=== PATIENT | male | born 1965 | race Caucasian/White ===

== ENCOUNTER 2018-10-02 14:28 | Outpatient (CLI) | payer OTHER, SELFPAY ==
[2018-10-02 15:20] LABS: Hemoglobin A1C 8.5 % (4.5-6.2)
[2018-10-02 15:42] LABS: Cholesterol 174 mg/dL (50-200); HDL Cholesterol 40 mg/dL (40-60); LDL CHOLESTEROL 85 mg/dL (<100); Triglyceride 515 mg/dL (30-150)
== END 2018-10-02 14:48 ==
PROVIDERS: PCP Internal Medicine
DX: I10 Essential (primary) hypertension (principal); I25.10 Atherosclerotic heart disease of native coronary artery without angina pectoris; I25.2 Old myocardial infarction; Z95.1 Presence of aortocoronary bypass graft; E78.00 Pure hypercholesterolemia, unspecified; E11.9 Type 2 diabetes mellitus without complications
CPT/HCPCS: 80061; 83721; 83036

== ENCOUNTER 2018-11-19 16:17 | Outpatient (CLI) | payer OTHER, SELFPAY ==
[2018-11-19 18:07] LABS: COMMENT (LAB VIEW ONLY) 87.83 mg/dL
== END 2018-11-19 16:37 ==
PROVIDERS: PCP Internal Medicine; Visit Provider Internal Medicine
DX: E11.29 Type 2 diabetes mellitus with other diabetic kidney complication (principal); I10 Essential (primary) hypertension; R80.9 Proteinuria, unspecified
CPT/HCPCS: 82043; 82570

== ENCOUNTER 2018-12-12 15:38 | Outpatient (CLI) | payer OTHER, SELFPAY ==
[2018-12-12 16:55] LABS: Anion Gap 8.7 mmol/L (3-11); BUN 18 mg/dL (7-18); CO2 28.3 mmol/L (21.0-32.0); CREATININE 1.21 mg/dL (0.70-1.30); Calcium 9.3 mg/dL (8.5-10.1); Chloride 104 mmol/L (98-107); Glucose 201 mg/dL (70-100); Potassium 3.7 mmol/L (3.5-5.1); Sodium 141 mmol/L (136-145)
== END 2018-12-12 15:58 ==
PROVIDERS: PCP Internal Medicine; Visit Provider Internal Medicine
DX: I10 Essential (primary) hypertension (principal)
CPT/HCPCS: 36415; 80048

== ENCOUNTER 2019-10-09 07:44 | Outpatient (CLI) | payer OTHER, SELFPAY ==
[2019-10-09 11:23] LABS: Anion Gap 7.1 mmol/L (3-11); BUN 24 mg/dL (7-18); CO2 30.9 mmol/L (21.0-32.0); CREATININE 1.34 mg/dL (0.70-1.30); Calcium 9.1 mg/dL (8.5-10.1); Calculated LDL 66 mg/dL (<100); Chloride 104 mmol/L (98-107); Cholesterol 135 mg/dL (<200); Estimated GFR 55.34 (mL/min/1.73m2); Glucose 112 mg/dL (74-106); HDL Cholesterol 40 mg/dL (40-60); Potassium 3.7 mmol/L (3.5-5.1); Sodium 142 mmol/L (136-145); Triglyceride 145 mg/dL (<150)
[2019-10-09 12:18] LABS: COMMENT (LAB VIEW ONLY) 68.62 mg/dL
== END 2019-10-09 08:04 ==
PROVIDERS: PCP Internal Medicine; Visit Provider Internal Medicine
DX: I10 Essential (primary) hypertension (principal); E11.9 Type 2 diabetes mellitus without complications; E78.00 Pure hypercholesterolemia, unspecified
CPT/HCPCS: 36415; 80048; 80061; 82043; 82570

== ENCOUNTER 2020-01-26 00:07 | Outpatient (CLI) | payer OTHER, SELFPAY ==
--- NOTE | 2020-01-26 06:45 | DI.NM_ITS ---
APPROVED REPORT Exam: Pharmacologic Patient Location: Out-Patient Room/Bed: Stress Nurse: Kendra Mitchell RN BMI: 35.86 Baseline Rhythm: Sinus Rhythm, LBBB Indications: CAD, CAD s/p CABG, CAD s/p NH, CAD s/p PCI, SOB Medical History Medical History: Angina, CAD s/p CABG, CAD s/p NH, CAD s/p stent, Diabetes, HTN, Hyperlipidemia, Obes ity , Smoking Cardiac Medications: Aspirin, Amlodipine, Doxazosin/ Cardura, Metoprolol, Rosuvastatin/ Crestor Allergies: lisinopril Cardiac Risk Factors: HTN, Hyperlipidemia, DM, FHX of CAD, SOB, CVD Previous Cardiac Procedures: CABG, PCI, Myocardial infarction Pretest Chest Pain Characteristics: No chest pain Exercise History: Sedentary Lung Sounds: Clear to auscultation Heart Sounds: Regular Stress Test Details Test: Pharmacologic stress testing performed using 0.4 mg of regadenoson per 5 mL given IV over 10 s econds. Reason for pharmacologic stress test: LBBB. Nuclear Acquisition: Rest Tc-99m/Stress Tc-99m 1 day Rest Isotope: Tc-99m Sestamibi. Dose: 12.1 Date: 01/26/2020 Injection Time: 0850 Stress Isotope: Tc-99m Sestamibi. Dose: 38 Date: 01/26/2020 Injection Time: 1020 HR Resting HR Supine: 79 bpm Max Heart Rate (APMHR): 165 bpm Target HR (85% APMHR): 140 bpm Max HR Achieved: 95 bpm % of APMHR: 57 Recovery HR: 89 bpm HR response to stress: Blunted HR response to stress BP Resting BP Supine: 178/95 mmHg Max BP: 188/90 mmHg Recovery BP: 172/90 mmHg BP response to stress: Abnormal hypertensive response to stress. ECG Resting ECG: Sinus Rhythm, LBBB Ectopy: pvc's Stress ECG: Sinus Rhythm, LBBB ST Change: Normal Maximum ST Deviation: -9.1 mm Recovery ECG: Sinus Rhythm, LBBB Recovery Arrhythmia: None Clinical Exercise duration: 06:03 min sec Exercise capacity: 1 METs Stress ECG Conclusion 1. This was a pharmacologic myocardial perfusion imaging study 2. Resting EKG shows left bundle branch block. 3. Electrocardiographically the test is nondiagnostic due to resting EKG abnormalities (LBBB) and an adequate heart rate achieved (57% of predicted for age) 4. Sporadic PVCs were noted MPI Conclusion There is no myocardial ischemia or evidence of prior infarction Calculated EF is 45% Radiologist Interpretation Radiologist agrees with Mold Capper's Interpretation. Radiologist Interpretation by: Ela Peterson MD Interpretation Date/Time: 01/28/2020 08:40:52
[2020-01-26] MEDS: Regadenoson 0.4 MG/5 ML SYR IVP (10:32)
== END 2020-01-26 00:27 ==
PROVIDERS: PCP Internal Medicine; Visit Provider Internal Medicine
DX: I25.10 Atherosclerotic heart disease of native coronary artery without angina pectoris (principal); I25.2 Old myocardial infarction; R06.09 Other forms of dyspnea; R06.02 Shortness of breath; I10 Essential (primary) hypertension; Z95.1 Presence of aortocoronary bypass graft
CPT/HCPCS: 78452; 93017; J2785

== ENCOUNTER 2021-01-27 02:48 | Outpatient (CLI) | payer OTHER, SELFPAY ==
[2021-01-27 12:10] LABS: COMMENT (LAB VIEW ONLY) 34.68 mg/dL
[2021-01-27 12:14] LABS: Anion Gap 9.9 mmol/L (3-11); BUN 18 mg/dL (7-18); CO2 28.1 mmol/L (21.0-32.0); CREATININE 1.4 mg/dL (0.70-1.30); Calculated LDL 74 mg/dL (<100); Chloride 103 mmol/L (98-107); Cholesterol 196 mg/dL (<200); Estimated GFR 52.42 (mL/min/1.73m2); Glucose 216 mg/dL (74-106); HDL Cholesterol 50 mg/dL (40-60); Potassium 3.9 mmol/L (3.5-5.1); Sodium 141 mmol/L (136-145); Triglyceride 364 mg/dL (<150)
== END 2021-01-27 02:49 | disposition home or self-care (01) ==
LOC: LBO 02:48
PROVIDERS: PCP Internal Medicine; Visit Provider Internal Medicine
DX: I10 Essential (primary) hypertension (principal); E78.00 Pure hypercholesterolemia, unspecified; E11.9 Type 2 diabetes mellitus without complications; R80.9 Proteinuria, unspecified
CPT/HCPCS: 36415; 80048; 80061; 82043; 82570

== ENCOUNTER 2021-02-02 15:15 | Outpatient (REF) | payer OTHER, SELFPAY ==
[2021-02-02 20:35] LABS: PROTEIN 414.4 mg/dL (0.0-11.9)
== END 2021-02-02 15:16 | disposition home or self-care (01) ==
LOC: LBN 15:15
PROVIDERS: PCP Internal Medicine; Visit Provider Internal Medicine
DX: R60.0 Localized edema (principal)
CPT/HCPCS: 84156

== ENCOUNTER 2021-02-24 02:18 | Outpatient (CLI) | payer OTHER, SELFPAY ==
--- NOTE | 2021-02-24 06:35 | DI.RAD_ITS ---
Exam(s) XR CHEST 2V PA LATERAL EXAM: XR CHEST 2V PA LATERAL CLINICAL HISTORY: wheezing,R06.2,EDEMA,R60.9.CAD I25.810. TECHNIQUE: 2D digital imaging was performed. COMPARISON: CR CHEST 2 VIEWS PA,LAT from 01/18/2016 FINDINGS: There is cardiomegaly and sternotomy wires again noted. Mediastinum unchanged. Lungs are clear. No infiltrates nor pleural effusions. No pulmonary edema. No pneumothorax. IMPRESSION: No acute pulmonary findings. Cardiomegaly and evidence of previous sternotomy again noted. DATA REPOSITORY: RADIATION DOSE DELIVERED:
--- NOTE | 2021-02-24 09:40 | DI.US_ITS ---
APPROVED REPORT EXAM: Comprehensive 2D, Doppler, and color-flow Echocardiogram Patient Location: Out-Patient Frame Hand: Lori Womack RDCS (AE) Indications: Edema, CAD, CABG Other Information Study Quality: Fair. Technically limited study due to body habitus. Conclusion Left Ventricle : The left ventricle is normal size. Left ventricular systolic function is mildly decr eased. Mild concentric left ventricular hypertrophy. The left ventricular diastolic function is petros l. There is global hypokinesis of the left ventricle. LVEF is 44%. Right Ventricle : Right ventricle is grossly normal in size. Right ventricular systolic function is g rossly normal. The RVSP is 40.0mmHg. Atria : The left atrium size is normal. The right atrium size is normal. Mitral Valve : Moderate mitral annular calcification. Trace mitral regurgitation. No evidence of mitr al valve stenosis. Great Vessels : The aortic root is normal in size. The ascending aorta is normal in size. Aortic arch is not well visualized. IVC is normal in size and collapses >50% with inspiration. Please see remainder of study for further details. Wall motion Left Ventricle The left ventricle is normal size. Left ventricular systolic function is mildly decreased. Mild fito ntric left ventricular hypertrophy. There is global hypokinesis of the left ventricle. The left ventr icular diastolic function is normal. There is no ventricular septal defect visualized. LVEF is 44%. Right Ventricle Right ventricle is grossly normal in size. Right ventricular systolic function is grossly normal. The RVSP is 40.0mmHg. Atria The left atrium size is normal. The right atrium size is normal. The interatrial septum is intact wit h no evidence for an atrial septal defect. Aortic Valve The Aortic valve is sclerotic. Aortic valve is trileaflet. There is no aortic valvular stenosis. No a ortic regurgitation is present. Mitral Valve Moderate mitral annular calcification. No evidence of mitral valve stenosis. Trace mitral regurgitati on. Tricuspid Valve The tricuspid valve is normal in structure. There is no tricuspid valve stenosis. Mild tricuspid regu rgitation. Pulmonic Valve Pulmonic valve is not well visualized. There is no pulmonic valvular stenosis. Mild pulmonic regurgit ation. Great Vessels The aortic root is normal in size. The ascending aorta is normal in size. Aortic arch is not well vis ualized. IVC is normal in size and collapses >50% with inspiration. Pericardium There is no pericardial effusion. 2D Dimensions IVSD d PLAX 1.28 cm M: 0.6-1.2 LV Vol A2C d MOD 95.8 mL LVPW d PLAX 1.25 cm M: 0.6 - 1.2 LV Vol A4C d MOD 148.7 mL LVID d PLAX 4.51 cm M: 4.2 - 5.8 LV EF A4C MOD 43.1 % LVDs 3.45 cm M: 2.5 - 4.0 LV EF A2C MOD 45.7 % Ao Root d 3.54 cm M: 3.1 - 3.7 LV EF Biplane MOD 43.4 % RA Area A4C 16.29 cm2 SV 51.89 mL RA Vol/ BSA A4C s A-L 18.5 mL/m2 SV Index 22.23 mL/m2 Ao Asc Diam d 3.38 cm M: 2.6 - 3.4 LV EF Teichholz 46.7 % LVEF (Sauceda's) 43.38 % M: 52 - 72 LV Volume 85.43 mL M: 62 - 150 LV Volume Index 36.66 mL/m2 M: 34 - 74 LV Vol Biplane MOD 119.6 mL FS 23.20 % M-Mode TAPSE 2.45 cm (M/F) >1.7 LV Diastology MV E' medial 0.084 (>0.07 m/s) E/A Ratio 0.8 LV E/e MED 10.20 (<14) MV E Vmax 0.86 (0.4-1.3 m/s) MV E' lateral 0.134 (>0.1 m/s) MV A Vmax 1.10 (0.4-1.3 m/s) LV E/e LAT 6.40 (<14) MV E/A Ratio 0.78 MV E/E' medial 10.20 MV E/E' lateral 6.41 Aortic Valve LVOT Area 3.62 cm2 AoV Area Vmax 3.16 cm2 LVOT Vmax 1.22 m/s AoV Area/ BSA (Vmax) 1.36 cm2/m2 LVOT Mean [place]. 0.78 m/s LINDSEY Mean [place]. 2.91 cm2 LVOT Peak Grad 6.0 mmHg LINDSEY Mean [place]. Index 1.25 cm2/m2 LVOT Mean Grad 2.9 mmHg LVOT VTI 0.204 m LVOT Diam s 2.10 cm AoV Vmax 1.40 m/s Velocity Ratio 0.87 AoV Mean [place]. 0.97 m/s AoV Peak Grad 7.8 mmHg LVOT SV 74.05 mL AoV Mean Grad 4.2 mmHg AoV VTI 0.241 m AoV Area VTI 3.07 cm2 AoV Area/ BSA (VTI) 1.32 cm/m2 Mitral Valve MV DT 147 (160-240 msec) MV PHT 43 msec MV Area PHT 5.16 cm2 MV VTI 0.324 m MV Area VTI 2.28 (4.0-6.0 cm2) Pulmonary Valve PV Vmax 1.65 (0.5-1.5 m/s) RVOT Peak Gr. 3.15 mmHg PV Peak Grad 10.8 mmHg RVOT Mean Gr. 1.65 mmHg PV Mean Grad 5.6 mmHg RVOT VTI 0.186 m PV VTI 0.348 m RVOT Vmax 0.89 m/s Tricuspid Valve TR Peak Grad 37.0 mmHg TR Vmax 3.04 m/s RA Pressure 3.00 mmHg RVSP (TR) 40.0 mmHg
== END 2021-02-24 02:38 ==
PROVIDERS: PCP Internal Medicine; Visit Provider Internal Medicine
DX: I25.810 Atherosclerosis of coronary artery bypass graft(s) without angina pectoris (principal); R60.9 Edema, unspecified; R06.2 Wheezing; I07.1 Rheumatic tricuspid insufficiency
CPT/HCPCS: 71046; 93306

== ENCOUNTER 2021-06-28 02:50 | Outpatient (CLI) | payer OTHER, SELFPAY ==
[2021-06-28 07:53] LABS: Bilirubin Negative (Negative); Blood Trace-intact (Negative); Clarity Clear (Clear); Glucose Negative (Negative); Ketones Negative (Negative); Leukocyte Esterase Negative (Negative); Nitrite Negative (Negative); Urobilinogen 0.2 EU/dL (Up TO 0.2); pH 6.5 (5-8)
[2021-06-28 08:09] LABS: Bacteria Few HPF (Negative); C & S Indicated? Yes; Casts Negative LPF (Negative); Crystals Negative HPF (Negative); Epithelial Cells Rare HPF (Negative); Mucus Negative (Negative); Other Cells Negative (Negative); WBC 0-2 HPF (0-5)
[2021-06-28 08:53] LABS: ALT 64 U/L (16-63); AST 33 U/L (15-37); Albumin 3.2 g/dL (3.4-5.0); Alkaline Phosphatase 75 U/L (46-116); Anion Gap 7.1 mmol/L (3-11); BUN 16 mg/dL (7-18); Bilirubin, Total 0.7 mg/dL (0.2-1.0); CO2 30.9 mmol/L (21.0-32.0); CREATININE 1.5 mg/dL (0.70-1.30); Calcium 8.9 mg/dL (8.5-10.1); Calculated LDL 64 mg/dL (<100); Chloride 105 mmol/L (98-107); Cholesterol 154 mg/dL (<200); Estimated GFR 48.41 (mL/min/1.73m2); Glucose 146 mg/dL (74-106); HDL Cholesterol 48 mg/dL (40-60); Potassium 3.8 mmol/L (3.5-5.1); Sodium 143 mmol/L (136-145); Total Protein 6.4 g/dL (6.4-8.2); Triglyceride 213 mg/dL (<150)
[2021-06-28 13:17] LABS: COMMENT (LAB VIEW ONLY) < 13.00 mg/dL; PROTEIN 117.1 mg/dL
== END 2021-06-28 02:51 | disposition home or self-care (01) ==
LOC: LBO 02:50
PROVIDERS: PCP Internal Medicine; Visit Provider Internal Medicine
DX: E11.29 Type 2 diabetes mellitus with other diabetic kidney complication (principal); R80.9 Proteinuria, unspecified; E78.00 Pure hypercholesterolemia, unspecified
CPT/HCPCS: 36415; 80053; 80061; 81003; 81015; 82565; 84156; 87086

== ENCOUNTER 2021-09-28 13:12 | Outpatient (REF) | payer OTHER, SELFPAY ==
[2021-09-28 15:06] LABS: COMMENT (LAB VIEW ONLY) 89.46 mg/dL
[2021-09-28 16:11] LABS: PROTEIN 642.1 mg/dL; Prot/Crea Ur Ratio 7.17
== END 2021-09-28 13:13 | disposition home or self-care (01) ==
LOC: LBN 13:12
PROVIDERS: PCP Internal Medicine; Referring Provider Internal Medicine; Visit Provider Internal Medicine
DX: R80.9 Proteinuria, unspecified (principal)
CPT/HCPCS: 82565; 84156

== ENCOUNTER 2021-10-20 04:05 | Outpatient (CLI) | payer OTHER, SELFPAY ==
[2021-10-20 10:35] LABS: Anion Gap 8.7 mmol/L (3-11); BUN 19 mg/dL (7-18); CO2 28.3 mmol/L (21.0-32.0); CREATININE 1.6 mg/dL (0.70-1.30); Calcium 9.2 mg/dL (8.5-10.1); Chloride 107 mmol/L (98-107); Estimated GFR 44.78 (mL/min/1.73m2); Glucose 155 mg/dL (74-106); Potassium 3.8 mmol/L (3.5-5.1); Sodium 144 mmol/L (136-145)
[2021-10-21 09:40] LABS: C3 Complement 141 mg/dL (81-157); C4 Complement 34 mg/dL (13-39); Kappa Free Light Chain 3.43 mg/dL (0.33-1.94); Lambda Free Light Chain 3.67 mg/dL (0.57-2.63)
[2021-10-21 10:21] LABS: Hepatitis B Surface Ag Negative (Negative)
[2021-10-21 10:26] LABS: HBs Antibody, Quant <3.1 mIU/mL (See Note); Hepatitis B Surface Ab Negative (See Note)
[2021-10-21 10:47] LABS: Hepatitis C Ab w Rflx HCV PCR Negative (Negative)
[2021-10-21 13:58] LABS: Albumin 58.1 % (55.8-66.1); Total Protein 6.3 g/dL (6.3-8.2)
== END 2021-10-20 04:06 | disposition home or self-care (01) ==
LOC: LBO 04:06
PROVIDERS: PCP Internal Medicine; Visit Provider Internal Medicine
DX: E11.21 Type 2 diabetes mellitus with diabetic nephropathy (principal); N18.30 Chronic kidney disease, stage 3 unspecified; R80.9 Proteinuria, unspecified
CPT/HCPCS: 36415; 80048; 86706; 86803; 87340; 83883; 84165; 86160

== ENCOUNTER 2021-10-20 16:43 | Outpatient (REF) | payer OTHER, SELFPAY ==
[2021-10-21 14:52] LABS: Albumin, Urine % 77.2 %; Globulins, Urine % 22.8 %; Immunotyping, Urine (See Note); Total Protein Urine 555 mg/dL (See Note)
== END 2021-10-20 16:44 | disposition home or self-care (01) ==
LOC: LBN 16:43
PROVIDERS: PCP Internal Medicine; Visit Provider Internal Medicine
DX: E11.21 Type 2 diabetes mellitus with diabetic nephropathy (principal); N18.30 Chronic kidney disease, stage 3 unspecified; R80.9 Proteinuria, unspecified
CPT/HCPCS: 84156; 84166; 86335

== ENCOUNTER 2021-11-17 03:04 | Outpatient (CLI) | payer OTHER, SELFPAY ==
[2021-11-17 15:55] LABS: Anion Gap 5.3 mmol/L (3-11); BUN 19 mg/dL (7-18); CO2 30.7 mmol/L (21.0-32.0); CREATININE 1.5 mg/dL (0.70-1.30); Calcium 8.8 mg/dL (8.5-10.1); Chloride 105 mmol/L (98-107); Estimated GFR 48.24 (mL/min/1.73m2); Glucose 120 mg/dL (74-106); Sodium 141 mmol/L (136-145)
[2021-11-17 15:59] LABS: COMMENT (LAB VIEW ONLY) 53.77 mg/dL; PROTEIN 420.6 mg/dL; Prot/Crea Ur Ratio 7.82
[2021-11-17 16:04] LABS: COMMENT (LAB VIEW ONLY) 53.56 mg/dL
== END 2021-11-17 03:05 | disposition home or self-care (01) ==
LOC: LBO 03:04
PROVIDERS: PCP Internal Medicine; Visit Provider Internal Medicine Nephrology
DX: R79.89 Other specified abnormal findings of blood chemistry (principal)
CPT/HCPCS: 36415; 80048; 82043; 82565; 82570; 84156

== ENCOUNTER 2022-01-16 03:24 | Outpatient (CLI) | payer OTHER, SELFPAY ==
[2022-01-16 09:59] LABS: Abs Immature Grans 0.02 10^3/uL (0.0-0.06); Absolute Basophil Count 0.04 10^3/uL (0.0-0.2); Absolute Eosinophil Count 0.57 10^3/uL (0.0-0.7); Absolute Lymphocyte Count 1.49 10^3/uL (1.2-3.4); Absolute Neutrophil Count 3.69 10^3/uL (1.2-6.7); Basophils % 0.6; Eosinophils % 8.4; HCT 53.7 % (40.0-50.0); HGB 18.1 g/dL (13.5-17.5); Immature Grans % 0.3; Lymphocytes % 21.9; MCH 31.3 pg (27.0-33.0); MCHC 33.7 % (32.0-36.0); MCV 93 fL (80-95); MPV 9.3 fL (8.0-11.0); Monocytes % 14.7; Neutrophils % 54.1; Platelet Count 186 10^3/uL (130-400); RBC 5.79 10^6/uL (4.36-5.78); RDW 13.1 % (11.8-14.1); RDW-SD 44.7 fL; WBC 6.81 10^3/uL (4.4-10.8)
[2022-01-16 10:21] LABS: COMMENT (LAB VIEW ONLY) 43.83 mg/dL; PROTEIN 417.8 mg/dL; Prot/Crea Ur Ratio 9.53
[2022-01-16 10:41] LABS: Albumin 2.9 g/dL (3.4-5.0); BUN 17 mg/dL (7-18); CREATININE 1.6 mg/dL (0.70-1.30); Calcium 8.5 mg/dL (8.5-10.1); Chloride 103 mmol/L (98-107); Estimated GFR 44.78 (mL/min/1.73m2); Glucose 125 mg/dL (74-106); Potassium 3.6 mmol/L (3.5-5.1); Sodium 141 mmol/L (136-145)
[2022-01-16 11:15] LABS: Vitamin D 25 Total < 5 ng/mL (30-100)
[2022-01-16 12:11] LABS: COMMENT (LAB VIEW ONLY) 43.14 mg/dL
[2022-01-18 17:15] LABS: Phospholipase A2 Receptor IFA Negative (Negative); Phospholipase A2Receptor ELISA <2 RU/mL
== END 2022-01-16 03:25 | disposition home or self-care (01) ==
LOC: LBO 03:24
PROVIDERS: PCP Internal Medicine; Visit Provider Internal Medicine Nephrology
DX: E11.21 Type 2 diabetes mellitus with diabetic nephropathy (principal); R80.9 Proteinuria, unspecified; R79.89 Other specified abnormal findings of blood chemistry
CPT/HCPCS: 36415; 80048; 82306; 83520; 86255; 82040; 82043; 82565; 82570; 84156; 85025

== ENCOUNTER 2022-08-31 01:43 | Outpatient (CLI) | payer OTHER, SELFPAY ==
[2022-08-31 09:48] LABS: HCT 50.7 % (40.0-50.0); Lymphocytes % 17.1; MCH 31.6 pg (27.0-33.0); MCHC 33.5 % (32.0-36.0); MCV 94 fL (80-95); MPV 8.9 fL (8.0-11.0); Monocytes % 9.6; Neutrophils % 67.9; Platelet Count 229 10^3/uL (130-400); RBC 5.38 10^6/uL (4.36-5.78); RDW 12.8 % (11.8-14.1); RDW-SD 43.9 fL; WBC 8.81 10^3/uL (4.4-10.8)
[2022-08-31 09:49] LABS: Abs Immature Grans 0.02 10^3/uL (0.0-0.06); Absolute Basophil Count 0.06 10^3/uL (0.0-0.2); Absolute Lymphocyte Count 1.51 10^3/uL (1.2-3.4); Absolute Monocyte Count 0.85 10^3/uL (0.1-0.8); Absolute Neutrophil Count 5.97 10^3/uL (1.2-6.7); Basophils % 0.7; Eosinophils % 4.5; Immature Grans % 0.2
[2022-08-31 10:34] LABS: ALT 24 U/L (16-63); AST 24 U/L (15-37); Albumin 3.1 g/dL (3.4-5.0); Alkaline Phosphatase 76 U/L (46-116); Anion Gap 7.7 mmol/L (3-11); BUN 22 mg/dL (7-18); Bilirubin, Total 0.7 mg/dL (0.2-1.0); CO2 29.3 mmol/L (21.0-32.0); CREATININE 1.7 mg/dL (0.70-1.30); Calcium 8.9 mg/dL (8.5-10.1); Calculated LDL 58 mg/dL (<100); Chloride 106 mmol/L (98-107); Cholesterol 144 mg/dL (<200); Estimated GFR 46.15 (mL/min/1.73m2); Glucose 129 mg/dL (74-106); HDL Cholesterol 48 mg/dL (40-60); Potassium 3.8 mmol/L (3.5-5.1); Sodium 143 mmol/L (136-145); Total Protein 6.4 g/dL (6.4-8.2); Triglyceride 191 mg/dL (<150)
== END 2022-08-31 01:44 | disposition home or self-care (01) ==
LOC: LBO 01:43
PROVIDERS: PCP Nurse Practitioner; Visit Provider Nurse Practitioner
DX: E11.21 Type 2 diabetes mellitus with diabetic nephropathy (principal); E78.5 Hyperlipidemia, unspecified; J45.909 Unspecified asthma, uncomplicated; N18.30 Chronic kidney disease, stage 3 unspecified
CPT/HCPCS: 36415; 80053; 80061; 85025

== ENCOUNTER 2023-02-15 04:12 | Outpatient (CLI) | payer OTHER, SELFPAY ==
[2023-02-15 12:00] LABS: NT-proBNP 802 pg/mL (<300)
[2023-02-18 11:46] LABS: Lipoprotein (a) 11 nmol/L (<75)
[2023-02-19 12:39] LABS: c-ANCA Negative (Negative); p-ANCA Negative (Negative)
[2023-02-22 12:56] LABS: Renin Activity, Plasma <0.6 ng/mL/h
[2023-02-23 23:45] LABS: Aldosterone, P 21 ng/dL (<=21)
== END 2023-02-15 04:13 | disposition home or self-care (01) ==
LOC: LBO 04:12
PROVIDERS: PCP Nurse Practitioner; Visit Provider Internal Medicine Nephrology
DX: E78.9 Disorder of lipoprotein metabolism, unspecified (principal); E11.21 Type 2 diabetes mellitus with diabetic nephropathy; E55.9 Vitamin D deficiency, unspecified; R06.09 Other forms of dyspnea
CPT/HCPCS: 36415; 82088; 83695; 83880; 84244; 86255

== ENCOUNTER 2023-12-27 05:12 | Outpatient (CLI) | payer OTHER, SELFPAY ==
[2023-12-27 07:56] LABS: Abs Immature Grans 0.03 10^3/uL (0.0-0.06); Absolute Basophil Count 0.05 10^3/uL (0.0-0.2); Absolute Eosinophil Count 0.41 10^3/uL (0.0-0.7); Absolute Lymphocyte Count 1.73 10^3/uL (1.2-3.4); Absolute Monocyte Count 0.82 10^3/uL (0.1-0.8); Absolute Neutrophil Count 5.08 10^3/uL (1.2-6.7); Basophils % 0.6 %; HCT 40.7 % (40.0-50.0); HGB 13.8 g/dL (13.5-17.5); Immature Grans % 0.4 %; Lymphocytes % 21.3 %; MCH 32.4 pg (27.0-33.0); MCHC 33.9 % (32.0-36.0); MCV 96 fL (80-95); MPV 8.8 fL (8.0-11.0); Monocytes % 10.1 %; Neutrophils % 62.6 %; Platelet Count 209 10^3/uL (130-400); RBC 4.26 10^6/uL (4.36-5.78); RDW 12.5 % (11.8-14.1); RDW-SD 44.2 fL; WBC 8.12 10^3/uL (4.4-10.8)
[2023-12-27 08:53] LABS: ALT 32 U/L (16-63); AST 20 U/L (15-37); Albumin 3.7 g/dL (3.4-5.0); Alkaline Phosphatase 54 U/L (46-116); BUN 51 mg/dL (7-18); Bilirubin, Total 0.6 mg/dL (0.2-1.0); CREATININE 3.2 mg/dL (0.70-1.30); Calcium 9.7 mg/dL (8.5-10.1); Calculated LDL 27 mg/dL (<100); Chloride 106 mmol/L (98-107); Cholesterol 115 mg/dL (<200); Estimated GFR 21.47 (mL/min/1.73m2); Glucose 118 mg/dL (74-106); HDL Cholesterol 39 mg/dL (40-60); Potassium 4.3 mmol/L (3.5-5.1); Sodium 144 mmol/L (136-145); Total Protein 7.1 g/dL (6.4-8.2); Triglyceride 247 mg/dL (<150)
== END 2023-12-27 05:13 | disposition home or self-care (01) ==
LOC: LBO 05:12
PROVIDERS: PCP Nurse Practitioner; Referring Provider Nurse Practitioner; Visit Provider Nurse Practitioner
DX: N18.30 Chronic kidney disease, stage 3 unspecified (principal); E11.21 Type 2 diabetes mellitus with diabetic nephropathy; E78.5 Hyperlipidemia, unspecified; I10 Essential (primary) hypertension
CPT/HCPCS: 36415; 80053; 80061; 85025

== ENCOUNTER → 2024-01-25 01:56 | Outpatient (CLI) | payer OTHER, SELFPAY ==
--- NOTE | 2024-01-25 08:08 | DI.CT_ITS ---
Exam(s) CT ABDOMEN PELVIS WO EXAM: CT ABDOMEN PELVIS WO CLINICAL HISTORY: Rectus diastases versus abdominal wall hernia, ABD WALL BULGE, R19.00. TECHNIQUE: Imaging Protocol: Axial computed tomography images with coronal and sagittal reformatted images were created and reviewed. COMPARISON: US US RENAL from 10/20/2021 FINDINGS: ABDOMEN: Lung Bases: Coronary artery calcifications and/or stents are present. Liver: Normal density. No measurable mass. Gallbladder and biliary tract: Cholelithiasis. No biliary ductal dilatation. Pancreas: Normal density, no abnormal calcifications or inflammatory process. Spleen: Normal. Kidneys: Normal size, contour and axis.No radiodense stones or obstructive uropathy. No masses seen. Adrenal glands: No mass is seen. Lymph nodes: Within normal limits. Abdominal Aorta: Abdominal portion non-dilated. Atherosclerotic calcification is present. PELVIS: Bladder:Symmetric distention, no gross wall thickening. Bowel: There are few diverticula in the colon but no evidence of acute diverticulitis. There is a du odenal diverticulum present. There is no evidence of bowel obstruction or bowel wall thickening. No evidence of appendicitis. Peritoneal cavity: No ascites, collection or mesenteric inflammatory response. No free air. Reproductive organs: Unremarkable as visualized. Bones: Within normal limits. There are old healed rib fractures. Soft Tissues: There is a small fat containing supraumbilical midline anterior abdominal wall hernia. There is a small fat containing umbilical hernia. There are fat containing small bilateral inguinal hernias. IMPRESSION: 1. Small supraumbilical fat containing midline anterior abdominal wall hernia. 2. Small fat containing umbilical hernia. 3. Small bilateral fat containing inguinal hernias. RADIATION DOSE DELIVERED: 1,390.29mGy.cm Total DLP DATA REPOSITORY: All CT scans at this facility are submitted to the National Radiology Data Registry (NRDR) Dose Index Registry (DIR) with the [employer] ([employer]). RADIATION OPTIMIZATION: All CT scans at this facility use at least one of these dose optimization te chniques: automated exposure control; mA and/or kV adjustment per patient size (includes targeted exa ms where dose is matched to clinical indication); or iterative reconstruction.
[2024-01-25] MEDS: Barium Sulfate 2% W/V-Creamy Vanilla Smoothie 450 ML BTL PO ×2 (13:20→13:21)
[2024-01-25 13:40] LABS: CREATININE 2.9 mg/dL (0.70-1.30); Estimated GFR 24.16 (mL/min/1.73m2)
== END ==
PROVIDERS: PCP Nurse Practitioner; Visit Provider Surgery
DX: R19.00 Intra-abdominal and pelvic swelling, mass and lump, unspecified site (principal)
CPT/HCPCS: 74176; 82565

== ENCOUNTER 2024-02-28 12:18 | Outpatient (CLI) | payer OTHER, SELFPAY ==
[2024-02-28 12:51] LABS: ESR 7 mm/hr (0-20)
[2024-02-28 13:45] LABS: COMMENT (LAB VIEW ONLY) 41.99 mg/dL; PROTEIN 56.2 mg/dL; Prot/Crea Ur Ratio 1.33
[2024-02-28 13:47] LABS: ALT 32 U/L (16-63); AST 19 U/L (15-37); Alkaline Phosphatase 61 U/L (46-116); BUN 60 mg/dL (7-18); Bilirubin, Total 0.45 mg/dL (0.2-1.0); C-Reactive Protein < 0.50 mg/dL (<or=0.5); CREATININE 3.2 mg/dL (0.70-1.30); Calcium 9.8 mg/dL (8.5-10.1); Chloride 104 mmol/L (98-107); Estimated GFR 21.47 (mL/min/1.73m2); Glucose 246 mg/dL (74-106); Potassium 4.7 mmol/L (3.5-5.1); Sodium 140 mmol/L (136-145); Total Protein 7.8 g/dL (6.4-8.2)
[2024-02-28 14:00] LABS: COMMENT (LAB VIEW ONLY) 42.58 mg/dL
[2024-02-28 14:01] LABS: Microalb ug/mg Crea 1084.8 ug/mg Cr
[2024-02-29 09:12] LABS: C3 Complement 142 mg/dL (81-157); C4 Complement 33 mg/dL (13-39); Kappa Free Light Chain 6.59 mg/dL (0.33-1.94); Lambda Free Light Chain 4.84 mg/dL (0.57-2.63)
[2024-02-29 12:43] LABS: Albumin 60.6 % (55.8-66.1); Albumin g/dL 4.3 g/dL (3.6-5.2); Total Protein 7.1 g/dL (6.3-8.2)
[2024-02-29 14:55] LABS: ANA Interpretation Negative (Negative)
[2024-02-29 16:13] LABS: Albumin, Urine % 81.5 %; Albumin, Urine mg/dL 50 mg/dL; Globulins, Urine % 18.5 %; Globulins, Urine mg/dL 11 mg/dL; Immunotyping, Urine (See Note); Total Protein Urine 61 mg/dL (See Note)
[2024-03-01 10:35] LABS: Glomerular Basement Membr Ab <0.2 U; Myeloperoxidase Ab IgG <0.2 U; Proteinase 3 Ab (PR3) <0.2 U
[2024-03-01 13:59] LABS: c-ANCA Negative (Negative); p-ANCA Negative (Negative)
== END 2024-02-28 12:19 | disposition home or self-care (01) ==
LOC: LBO 12:19
PROVIDERS: PCP Nurse Practitioner; Visit Provider Internal Medicine Nephrology
DX: N17.9 Acute kidney failure, unspecified (principal)
CPT/HCPCS: 36415; 80053; 84156; 84166; 85652; 86335; 82043; 82565; 82570; 82595; 83516; 83520; 83883; 84165; 86038; 86140; 86160; 86255

== ENCOUNTER 2024-04-24 16:11 | Outpatient (CLI) | payer OTHER, SELFPAY ==
[2024-04-24 10:41] LABS: Abs Immature Grans 0.05 10^3/uL (0.0-0.06); Absolute Basophil Count 0.06 10^3/uL (0.0-0.2); Absolute Eosinophil Count 0.39 10^3/uL (0.0-0.7); Absolute Lymphocyte Count 1.39 10^3/uL (1.2-3.4); Absolute Monocyte Count 0.64 10^3/uL (0.1-0.8); Basophils % 0.7 %; Eosinophils % 4.9 %; HCT 40.9 % (40.0-50.0); HGB 13.9 g/dL (13.5-17.5); Immature Grans % 0.6 %; Lymphocytes % 17.3 %; MCH 32.7 pg (27.0-33.0); MCV 96 fL (80-95); Neutrophils % 68.5 %; Platelet Count 248 10^3/uL (130-400); RBC 4.25 10^6/uL (4.36-5.78); RDW 12.6 % (11.8-14.1); RDW-SD 44.1 fL; WBC 8.03 10^3/uL (4.4-10.8)
[2024-04-24 10:59] LABS: COMMENT (LAB VIEW ONLY) 103.56 mg/dL; PROTEIN 153.4 mg/dL; Prot/Crea Ur Ratio 1.48
[2024-04-24 11:07] LABS: COMMENT (LAB VIEW ONLY) 104.17 mg/dL
[2024-04-24 11:23] LABS: Albumin 3.7 g/dL (3.4-5.0); Anion Gap 9.3 mmol/L (3-11); BUN 42 mg/dL (7-18); CO2 25.7 mmol/L (21.0-32.0); CREATININE 2.7 mg/dL (0.70-1.30); Calcium 9.6 mg/dL (8.5-10.1); Chloride 107 mmol/L (98-107); Estimated GFR 26.33 (mL/min/1.73m2); Glucose 142 mg/dL (74-106); Potassium 4.9 mmol/L (3.5-5.1); Sodium 142 mmol/L (136-145); Vitamin D 25 Total 34.3 ng/mL (30-100)
[2024-04-24 19:28] LABS: Parathyroid Hormone,Intact 112 pg/mL (19-88)
== END 2024-04-24 16:12 | disposition home or self-care (01) ==
LOC: LBO 16:11
PROVIDERS: PCP Nurse Practitioner; Visit Provider Internal Medicine Nephrology
DX: E55.9 Vitamin D deficiency, unspecified (principal); N18.32 Chronic kidney disease, stage 3b; N17.9 Acute kidney failure, unspecified
CPT/HCPCS: 36415; 80048; 82306; 82040; 82043; 82565; 82570; 83970; 84156; 85025

== ENCOUNTER 2024-08-28 00:49 | Outpatient (CLI) | payer OTHER, SELFPAY ==
--- NOTE | 2024-08-28 07:00 | DI.RAD_ITS ---
Exam(s) XR LUMBAR SPINE COMPLETE EXAM: XR LUMBAR SPINE COMPLETE CLINICAL HISTORY: LOW BACK pain since summer,M54.50. TECHNIQUE: 2D digital imaging was performed. Five views. COMPARISON: No exams were available for comparison FINDINGS: BONES: No fracture or destructive lesion. Vertebral body heights are maintained. Moderate facet hy pertrophy identified at L4-5 and L5-S1.. No spondylolysis. DISKS: Endplate osteophytes throughout. Mild multilevel disc space narrowing. ALIGNMENT: Mild degenerative scoliosis. No spondylolisthesis. SOFT TISSUE: The aorta is calcified but normal in diameter. Gallstones are noted. IMPRESSION: Mild scoliosis degenerative disc changes and facet degenerative changes. DATA REPOSITORY: RADIATION DOSE DELIVERED:
== END 2024-08-28 01:09 ==
LOC: DI 00:49
PROVIDERS: PCP Nurse Practitioner; Visit Provider Nurse Practitioner
DX: M41.82 Other forms of scoliosis, cervical region (principal)
CPT/HCPCS: 72110

== ENCOUNTER 2024-12-04 01:36 | Outpatient (CLI) | payer OTHER, SELFPAY ==
[2024-12-04 09:30] LABS: Abs Immature Grans 0.02 10^3/uL (0.0-0.06); Absolute Basophil Count 0.05 10^3/uL (0.0-0.2); Absolute Lymphocyte Count 1.45 10^3/uL (1.2-3.4); Absolute Monocyte Count 0.73 10^3/uL (0.1-0.8); Absolute Neutrophil Count 4.43 10^3/uL (1.2-6.7); Basophils % 0.7 %; Eosinophils % 4.3 %; HCT 42.1 % (40.0-50.0); Immature Grans % 0.3 %; Lymphocytes % 20.8 %; MCH 32.9 pg (27.0-33.0); MCHC 33.3 % (32.0-36.0); MCV 99 fL (80-95); MPV 8.6 fL (8.0-11.0); Monocytes % 10.5 %; Neutrophils % 63.4 %; Platelet Count 221 10^3/uL (130-400); RBC 4.26 10^6/uL (4.36-5.78); RDW 12.9 % (11.8-14.1); RDW-SD 46.9 fL; WBC 6.98 10^3/uL (4.4-10.8)
[2024-12-04 10:08] LABS: COMMENT (LAB VIEW ONLY) 39.58 mg/dL; PROTEIN 20.3 mg/dL; Prot/Crea Ur Ratio 0.51
[2024-12-04 10:10] LABS: Anion Gap 7.8 mmol/L (3-11); CO2 24.2 mmol/L (21.0-32.0); Calcium 10.6 mg/dL (8.5-10.1); Chloride 108 mmol/L (98-107); Estimated GFR 17.93 (mL/min/1.73m2); Glucose 110 mg/dL (74-106); PHOSPHORUS 5.4 mg/dL (2.6-4.7); Potassium 5.2 mmol/L (3.5-5.1); Sodium 140 mmol/L (136-145); Uric Acid 10.2 mg/dL (3.5-7.2)
[2024-12-04 10:20] LABS: BUN 86 mg/dL (7-18); CREATININE 3.7 mg/dL (0.70-1.30)
[2024-12-04 19:19] LABS: Parathyroid Hormone,Intact 64 pg/mL (19-88)
== END 2024-12-04 01:37 | disposition home or self-care (01) ==
PROVIDERS: PCP Nurse Practitioner; Visit Provider Internal Medicine Nephrology
DX: N18.4 Chronic kidney disease, stage 4 (severe) (principal)
CPT/HCPCS: 36415; 80048; 82040; 82565; 83970; 84100; 84156; 84550; 85025

== ENCOUNTER 2025-01-29 11:35 | Outpatient (CLI) | payer OTHER, SELFPAY ==
[2025-01-29 12:54] LABS: COMMENT (LAB VIEW ONLY) 61.32 mg/dL
[2025-01-29 12:59] LABS: Microalb ug/mg Crea 274.0 ug/mg Cr
[2025-01-29 13:05] LABS: Anion Gap 10.6 mmol/L (3-11); BUN 59 mg/dL (7-18); CO2 24.4 mmol/L (21.0-32.0); Calcium 9.0 mg/dL (8.5-10.1); Chloride 106 mmol/L (98-107); Estimated GFR 18.52 (mL/min/1.73m2); Ferritin 382 ng/mL (26-388); Glucose 117 mg/dL (74-106); Magnesium 2.4 mg/dL (1.8-2.4); Potassium 5.1 mmol/L (3.5-5.1); Sodium 141 mmol/L (136-145); Vitamin D 25 Total 44 ng/mL (30-100)
[2025-01-29 13:29] LABS: Iron 82 ug/dL (65-175); Total Iron Binding Capacity 284 ug/dL (250-450); Transferrin Sat 29 % (20-55)
== END 2025-01-29 11:36 | disposition home or self-care (01) ==
LOC: LBO 11:36
PROVIDERS: PCP Nurse Practitioner; Visit Provider Internal Medicine Nephrology
DX: N18.4 Chronic kidney disease, stage 4 (severe) (principal); E87.5 Hyperkalemia
CPT/HCPCS: 36415; 80048; 82306; 82043; 82570; 82728; 83540; 83550; 83735

== ENCOUNTER 2025-02-19 09:55 | Outpatient (CLI) | payer OTHER, SELFPAY ==
[2025-02-19 10:04] LABS: Abs Immature Grans 0.02 10^3/uL (0.0-0.06); HCT 42.2 % (40.0-50.0); HGB 14.2 g/dL (13.5-17.5); Immature Grans % 0.3 %; MCH 33.5 pg (27.0-33.0); MCHC 33.6 % (32.0-36.0); MCV 100 fL (80-95); MPV 8.6 fL (8.0-11.0); Platelet Count 198 10^3/uL (130-400); RBC 4.24 10^6/uL (4.36-5.78); RDW 12.7 % (11.8-14.1); RDW-SD 45.8 fL; WBC 6.45 10^3/uL (4.4-10.8)
[2025-02-19 10:22] LABS: PROTEIN 60.9 mg/dL; Prot/Crea Ur Ratio 0.71
[2025-02-19 10:25] LABS: Albumin 3.8 g/dL (3.4-5.0); Anion Gap 9.7 mmol/L (3-11); BUN 39 mg/dL (7-18); CO2 24.3 mmol/L (21.0-32.0); Calcium 9.4 mg/dL (8.5-10.1); Chloride 106 mmol/L (98-107); Estimated GFR 24.01 (mL/min/1.73m2); Glucose 107 mg/dL (74-106); Potassium 4.7 mmol/L (3.5-5.1); Sodium 140 mmol/L (136-145); Uric Acid 8.5 mg/dL (3.5-7.2)
== END 2025-02-19 09:56 | disposition home or self-care (01) ==
LOC: LBO 09:55
PROVIDERS: PCP Nurse Practitioner; Visit Provider Internal Medicine Nephrology
DX: N18.4 Chronic kidney disease, stage 4 (severe) (principal)
CPT/HCPCS: 36415; 80048; 82040; 82565; 83970; 84100; 84156; 84550; 85025

== ENCOUNTER 2025-03-19 14:01 | Outpatient (CLI) | payer OTHER, SELFPAY ==
[2025-03-19 09:26] LABS: INR 1.0 (0.9-1.1); PTT Activated 23.6 sec (20.6-30.2); Prothrombin Time 10.2 sec (9.1-11.1)
[2025-03-20 08:37] LABS: HBs Antibody, Quant 5.1 mIU/mL (See Note); Hepatitis B Surface Ab Negative (See Note)
[2025-03-20 09:23] LABS: Hepatitis C Ab w Rflx HCV PCR Negative (Negative)
[2025-03-20 09:27] LABS: Hep B Core Antibody Negative (Negative)
[2025-03-20 09:41] LABS: HIV-1/2 Ag & Ab Screen Negative (Negative)
[2025-03-20 12:17] LABS: Rubella IgG Ab (UVM) Positive (See Note)
[2025-03-20 13:37] LABS: HSV Type 2 Ab, IgG Negative (Negative)
[2025-03-20 15:23] LABS: VCA IgG Positive (Negative); VCA IgM Negative (Negative)
[2025-03-23 15:49] LABS: Syphilis IgG w/Reflex Nonreactive (Nonreactive)
== END 2025-03-19 14:02 | disposition home or self-care (01) ==
LOC: LBO 14:02
PROVIDERS: PCP Nurse Practitioner; Visit Provider Surgery
DX: N18.4 Chronic kidney disease, stage 4 (severe) (principal); Z01.818 Encounter for other preprocedural examination
CPT/HCPCS: 36415; 84153; 86704; 86706; 86765; 86787; 86803; 87340; 87389; 82985; 84681; 85610; 85730; 86644; 86664; 86665; 86695; 86696; 86735; 86762; 86777; 86780; 87497

== ENCOUNTER 2025-05-07 09:09 | Outpatient (CLI) | payer OTHER, SELFPAY ==
[2025-05-07 10:06] LABS: Estimated GFR 21.34 (mL/min/1.73m2)
[2025-05-07 18:34] LABS: PSA, Screening 1.3 ng/mL (<=4.5)
== END 2025-05-07 09:10 | disposition home or self-care (01) ==
LOC: LBO 09:09
PROVIDERS: PCP Nurse Practitioner; Visit Provider Family Medicine
DX: Z12.5 Encounter for screening for malignant neoplasm of prostate (principal); R94.4 Abnormal results of kidney function studies
CPT/HCPCS: 36415; 84153; 82565

== ENCOUNTER 2025-06-12 13:17 | Inpatient (IN) | payer OTHER, SELFPAY ==
[2025-06-12] VITALS (41 sets, daily range): BP systolic 91–126; BP diastolic 54–77; PULSE 55–72; RESP 13–23; TEMP 35.8–37.4; O2SAT 95–98
--- NOTE | 2025-06-12 13:15 | RT.EKG_ITS ---
APPROVED REPORT Exam: Resting ECG Reason for Exam: hypotension Patient Location: E HR:61 bpm ECG Measurements Heart Rate 61 AXIS MN 240 P -69 QRSd 162 QRS -84 QT 453 T [id number] QTc 456 Conclusion Sinus or ectopic atrial rhythm...P axis (-45,135) Prolonged MN interval...MN >210, V-rate 50- 90 Left bundle branch block...QRSd>120, broad/notched R ST elevation secondary to IVCD...Multiple VCG criteria
--- NOTE | 2025-06-12 13:56 | W.ED.GENAD ---
Discharge Plan Disposition Patient Disposition: Admit to [facility] Condition: Serious Discharge Details Clinical Impression: Hyperkalemia, NOLAN (acute kidney injury), Acute hypotension, Hypovolemia Primary Care Provider: Preston Moffett ED Provider: Seamus Smith Home Meds and New Rx's Prescriptions: No Action amlodipine 10 mg tablet 10 mg PO DAILY Qty: 90 3RF olmesartan [Benicar] 40 mg tablet 40 mg PO DAILY Qty: 90 3RF rosuvastatin 20 mg tablet 20 mg PO DAILY Qty: 90 3RF famotidine 40 mg tablet 40 mg PO DAILY Qty: 90 0RF peg 3350-electrolytes [Golytely] 236-22.74-6.74 -5.86 gram recon soln 240 ml PO Q10M Qty: 4000 0RF Rx Instructions: until fecal effluent is clear, for colonoscopy prep bisacodyl 5 mg tablet,delayed release (DR/EC) 5 mg PO ONCE Qty: 4 0RF Rx Instructions: Per Colonoscopy bowel prep instructions aspirin 81 MG tablet,delayed release (DR/EC) 81 mg PO DAILY (DME) FreeStyle Arnold 2 [place] Misc See Rx Instructions .ROUTE .MEDSUPPLY Qty: 1 0RF Rx Instructions: As directed cholecalciferol (vitamin D3) 50 mcg (2,000 unit) capsule 50 mcg PO DAILY Rx Instructions: note dated 02/02/22 [facility] [place] carvedilol [Coreg] 25 mg tablet 25 mg PO BID Patient Comments: 10/06/22 [facility] Rx Instructions: must administer with a meal/food (DME) FreeStyle Arnold 2 Sensor Kit See Rx Instructions .ROUTE .MEDSUPPLY Qty: 6 3RF Rx Instructions: As directed furosemide 20 mg tablet 40 mg PO DAILY PRN (Reason: edema) Qty: 180 3RF Rx Instructions: 1-2 tabs daily as needed for edema or weight gain semaglutide 1 mg/dose (4 mg/3 mL) pen injector 1 mg subcut QWEEK Qty: 3 5RF (DME) blood-glucose meter Misc See Rx Instructions .Route Qty: 1 0RF Rx Instructions: Please fill with insurance preferred Brand. Check blood sugar BID. DX: E11.9 T2DM. (DME) Blood Glucose Test Strip See Rx Instructions .Route Qty: 100 3RF Rx Instructions: Please fill with insurance preferred brand. Check blood sugar BID. DX: E11.9 T2DM (DME) lancets 32 gauge misc See Rx Instructions .Route Qty: 100 3RF Rx Instructions: Please fill with preferred insurance brand. Check blood sugar BID. DX:E11.9 T2DM. Please provide lancing device. Mounjaro 5 mg/0.5 mL pen injector 5 mg subcut QWEEK Patient Comments: from 02/26/25 visit doxazosin 1 mg tablet 2 mg PO DAILY Patient Comments: increased to 2mg per pt.HE Jardiance 10 mg tablet 25 mg PO DAILY Patient Comments: increased to 25mg per pt.HE chlorthalidone 25 mg tablet 12.5 mg PO DIRECTED Patient Comments: take ONE-HALF tablet BY MOUTH THREE times PER WEEK FOR TWO WEEKS THEN increase TO one half tablet daily HPI General Mode of arrival: ambulatory. Date/Time Provider Initiated Documentation: 06/12/25 13:32. Limitations to Documentation: no limitations. Information obtained by: patient. HPI Narrative: HISTORY OF PRESENT ILLNESS 59-year-old male with hypertension, diabetes, and stage IV kidney disease presents with hypotension and dizziness. Systolic BP in the 90s yesterday, diastolic BP in the 50s-60s, lower than usual 130s/80s. Intermittent dizziness for months, worse today. Patient notes was seen by general surgery for preop colonoscopy and PCP yesterday. Blood pressure was low yesterday and was told he needed to speak with his coldfusion about altering medications. He attempted to contact cardiology team and he has not heard back. No recent health changes, no new supplements or dietary changes. Consistent antihypertensive regimen. Pharmacy delay in medication refill; took carvedilol once daily instead of twice. Preparing for kidney transplant. Two myocardial infarctions, first at age 49 with stents, second at age 51 with open-heart surgery. No chest pain since. Drinks water constantly, on Lasix and chlorthalidone. Scheduled for colonoscopy on 06/25/2025. Preoperative evaluation revealed gallstones, thickened pancreas head, and calcified bladder wall, asymptomatic. Related Data Home Medications ?Medication ?Instructions ?Recorded ?Confirmed aspirin 81 mg tablet,delayed 81 mg PO DAILY 11/25/12 06/12/25 release flash glucose scanning reader #1 ea 07/05/21 06/12/25 (FreeStyle Arnold 2 [place]) cholecalciferol (vitamin D3) 50 50 mcg PO DAILY 02/07/22 06/12/25 mcg (2,000 unit) capsule carvedilol 25 mg tablet (Coreg) 25 mg PO BID 10/10/22 06/12/25 amlodipine 10 mg tablet 10 mg PO DAILY #90 tab-caps 09/18/23 06/12/25 Held on 05/06/24. Instructions: Stopped by dr Hart, Nephrology flash glucose sensor (FreeStyle #6 ea 09/09/24 06/12/25 Arnold 2 Sensor kit) furosemide 20 mg tablet 40 mg (2 x 20 mg) PO DAILY PRN 10/21/24 06/12/25 edema #180 tabs semaglutide 1 mg/dose (4 mg/3 mL) 1 mg (0.75 mL) subcut QWEEK #3 mL 10/28/24 06/12/25 subcutaneous pen injector Held on 03/12/25. Instructions: changed by DR García at Nephrology blood sugar diagnostic (Blood #100 ea 11/14/24 06/12/25 Glucose Test strips) blood-glucose meter #1 ea 11/14/24 06/12/25 lancets 32 gauge #100 ea 11/14/24 06/12/25 tirzepatide 5 mg/0.5 mL 5 mg subcut QWEEK 03/12/25 06/12/25 subcutaneous pen injector (Teo) doxazosin 1 mg tablet 2 mg PO DAILY 03/26/25 06/12/25 empagliflozin 10 mg tablet 25 mg PO DAILY 03/26/25 06/12/25 (Jardiance) olmesartan 40 mg tablet (Benicar) 40 mg PO DAILY #90 tabs 03/26/25 06/12/25 rosuvastatin 20 mg tablet 20 mg PO DAILY #90 tab-caps 03/26/25 06/12/25 famotidine 40 mg tablet 40 mg PO DAILY #90 tabs 05/07/25 06/12/25 bisacodyl 5 mg tablet,delayed 5 mg PO ONCE Colonoscopy Bowel 06/11/25 06/12/25 release Prep #4 tabs peg 3350-electrolytes 236 240 ml PO Q10M #4,000 mL 06/11/25 06/12/25 gram-22.74 gram-6.74 gram-5.86 gram solution (Golytely) chlorthalidone 25 mg tablet 12.5 mg PO DIRECTED 06/12/25 06/12/25 Previous Rx's ?Medication ?Instructions ?Recorded flash glucose scanning reader #1 ea 07/05/21 (FreeStyle Arnold 2 [place]) amlodipine 10 mg tablet 10 mg PO DAILY #90 tab-caps 09/18/23 Held on 05/06/24. Instructions: Stopped by dr Hart, Nephrology flash glucose sensor (FreeStyle #6 ea 09/09/24 Arnold 2 Sensor kit) furosemide 20 mg tablet 40 mg (2 x 20 mg) PO DAILY PRN 10/21/24 edema #180 tabs semaglutide 1 mg/dose (4 mg/3 mL) 1 mg (0.75 mL) subcut QWEEK #3 mL 10/28/24 subcutaneous pen injector Held on 03/12/25. Instructions: changed by DR García at Nephrology blood sugar diagnostic (Blood #100 ea 11/14/24 Glucose Test strips) blood-glucose meter #1 ea 11/14/24 lancets 32 gauge #100 ea 11/14/24 olmesartan 40 mg tablet (Benicar) 40 mg PO DAILY #90 tabs 03/26/25 rosuvastatin 20 mg tablet 20 mg PO DAILY #90 tab-caps 03/26/25 famotidine 40 mg tablet 40 mg PO DAILY #90 tabs 05/07/25 bisacodyl 5 mg tablet,delayed 5 mg PO ONCE Colonoscopy Bowel 06/11/25 release Prep #4 tabs peg 3350-electrolytes 236 240 ml PO Q10M #4,000 mL 06/11/25 gram-22.74 gram-6.74 gram-5.86 gram solution (Golytely) Allergies Allergy/AdvReac Type Severity Reaction Status Date / Time atorvastatin Allergy Unknown muscle pain Verified 06/12/25 13:23 lisinopril AdvReac Mild cough Verified 06/12/25 13:23 General Stated Complaint: Dizzy/Sync JUDIT: 3 Review of Systems All systems reviewed & are unremarkable except as noted in HPI and below Constitutional Constitutional: Denies fever(s) Cardiovascular Cardiovascular: Denies chest pain Exam Const General: cooperative and no acute distress HENMT Mouth: mucous membranes dry Eyes Conjunctivae: normal conjunctivae Sclera: normal sclerae Resp Auscultation: clear to auscultation bilaterally, no rales, no rhonchi and no wheezes Cardio Rate: regular rate and not tachycardic Rhythm: regular rhythm GI Palpation: soft, not firm, no guarding, no masses, not rigid and nontender Skin General skin exam: no rashes or lesions noted Neuro General: patient alert, patient awake and tone normal Extrem General: no edema Psych Appearance: grossly normal Mental Status: mental status grossly normal Speech and Movement: speech and movement normal Course Vital Signs Vital signs: Vital Signs Temperature 36.6 C 06/12/25 13:19 Pulse 64 06/12/25 13:19 Respiratory Rate 18 06/12/25 13:19 Blood Pressure 108/68 06/12/25 13:19 Pulse Oximetry 96 06/12/25 13:19 Temperature 36.6 C 06/12/25 13:19 Pulse 66 06/12/25 13:35 Pulse 65 06/12/25 13:35 Respiratory Rate 16 06/12/25 13:35 Blood Pressure 108/68 06/12/25 13:19 Pulse Oximetry 98 06/12/25 13:35 Pain Level 0 06/12/25 13:19 Medical Decision Making ASSESSMENT AND PLAN Assessment: 59-year-old male with multiple medical problems including history of stage IV chronic kidney disease, coronary artery disease status post CABG, CHF, here with hypotension and dizziness. BP 105/58, HR 65. History of stage IV kidney disease and myocardial infarctions. Patient does make urine. Differential: Hypotension, medication adjustment, orthostatic hypotension. ED course: -- EKG reviewed and interpreted by me: Please see report, first-degree AV block with RI interval of 240, left bundle branch block, appropriately concordant, left bundle branch block and first-degree block are old compared to prior EKG. -- Labs reviewed and acute on chronic kidney injury noted. Creatinine 4.18 from 3.2 a month ago. BUN elevated at 90. Potassium is elevated at 5.8. Plan to give Lokelma. Patient dehydrated. Will give 500 mL IV fluid bolus. -- All results were discussed with the patient. Confirmed with patient that he has been making urine at baseline. Patient agreeable to plan for hospitalization for cardiac monitoring and further diagnostics. -- Case was reviewed with Dr. Zheng, on-call hospitalist, discussed ED presentation course, he will admit the patient. This document was written with the assistance of MAGGIE Malik. The patient consented to its use. Lab Data Lab results reviewed: Yes I reviewed the patient's lab results. Labs: Laboratory Tests Range/Units 06/12/25 13:53 WBC (4.4-10.8) 10^3/uL 6.73 RBC (4.36-5.78) 10^6/uL 4.39 Hgb (13.5-17.5) g/dL 14.1 Hct (40.0-50.0) % 42.0 MCV (80-95) fL 96 H MCH (27.0-33.0) pg 32.1 MCHC (32.0-36.0) % 33.6 RDW (11.8-14.1) % 12.7 Plt Count (130-400) 10^3/uL 190 MPV (8.0-11.0) fL 9.2 Immature Gran % % 0.1 Neutrophils % % 63.6 Lymphocytes % % 20.7 Monocytes % % 10.4 Eosinophils % % 4.5 Basophils % % 0.7 Nucleated RBC % (0.0-0.3) % 0.0 Absolute Neutrophils (1.2-6.7) 10^3/uL 4.28 Absolute Lymphocytes (1.2-3.4) 10^3/uL 1.39 Absolute Monocytes (0.1-0.8) 10^3/uL 0.70 Absolute Eosinophils (0.0-0.7) 10^3/uL 0.30 Absolute Basophils (0.0-0.2) 10^3/uL 0.05 Sodium (136-145) mmol/L 140 Potassium (3.5-5.1) mmol/L 5.8 H Chloride (98-107) mmol/L 110 H Carbon Dioxide (20.0-31.0) mmol/L 20.7 Anion Gap (3-11) mmol/L 9.3 BUN (9-23) mg/dL 91 H* Creatinine (0.73-1.18) mg/dL 4.18 H* Est GFR (CKD-EPI 2020) (mL/min/1.73m2) 14.58 Glucose (74-106) mg/dL 106 Calcium (8.3-10.6) mg/dL 8.9 Magnesium (1.6-2.6) mg/dL 2.4 Total Bilirubin (0.2-1.2) mg/dL 0.40 AST (<34) U/L 17 ALT (10-49) U/L 16 Alkaline Phosphatase (46-116) U/L 64 Troponin I (<54) ng/L 7 NT-Pro-B Natriuret Pep (<300) pg/mL 172 Total Protein (5.7-8.2) g/dL 7.2 Albumin (3.4-5.0) g/dL 4.4 PFSH All Active Problems (Updated 06/12/25 @ 15:10 by Seamus Smith MD) Hypovolemia (Acute) Acute hypotension (Acute) NOLAN (acute kidney injury) (Acute) Former smoker (Acute) Screening for prostate cancer (Acute) Encounter for pre-transplant evaluation for kidney transplant (Acute ~03/05/25) [facility] [place] 03/05/25.HE Hyperparathyroidism, unspecified (Acute) 02/26/25 f/u [facility] [place] Nephrology Hyperkalemia (Acute ~02/2025) 02/26/25 ov at Nephrology Chronic kidney disease, stage 4 (severe) (Acute ~02/2025) 02/26/25 F/U with Nephrology, was stage 3 now advanced to stage 4 Abdominal wall bulge (Acute) Rectus diastasis (Acute) FUNG (dyspnea on exertion) (Acute ~05/2022) Colonoscopy refused (Acute) Hypovitaminosis D (Acute ~01/2022) 12/22/22 Nephrology 02/26/25 F/u with Nephrology CKD (chronic kidney disease) stage 3, GFR 30-59 ml/min (Acute) 12/22/22 Nephrology 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 (Chronic ~05/2021) Nephrotic range proteinuria (Acute) CHF (congestive heart failure) (Chronic ~01/2021) LVEF 44% 03/1203/12/13 stress echo [facility] [place]: EF 60% no ischemia History of coronary artery bypass graft x 2 (Chronic 11/01/15) Hypertension (Chronic) Hyperlipidemia (Chronic) Type 2 diabetes mellitus (Chronic) Microalbuminuria due to type 2 diabetes mellitus (Chronic 01/17/17) Obesity, Class I, BMI 30.0-34.9 (see actual BMI) (Chronic 12/22/14) Spinal stenosis at L4-L5 level (Chronic 12/25/14) Medical History Acute kidney injury 02/13/24 Nephrology, consult d/t proteinuria Pneumonia (08/02/13) Fracture, ribs (08/02/13) Surgical History Coronary Artery Bypass Gaft (CABG) (11/01/15) Haim Valentine MD [facility] [place] Angioplasty Family History Mother Alcohol abuse Essential hypertension Father Essential hypertension Hyperlipidemia Vocal cord cancer XRT Sister Essential hypertension Social History Smoking/Tobacco Use Status: Former Tobacco Use Quit Date: 07/23/11 Smoking risk assessment performed?: Yes Alcohol Intake: current Alcohol Intake frequency: a few times a week Alcohol type: wine Drug use: Never Substance use type: does not use Adopted: No Household members: spouse and other Details: son in college Number of Children: 3 number of grandchildren: 1 Communication Needs: Corrective Lenses current occupation: works for [employer] What is your relationship status?: Panel score (0-1 are the most socially isolated patients): 1 What type of physical activity do you participate in: none Seatbelt use: always Drive intox or ride w/intox courtesy car driver: No Working smoke detector in home: Yes Carbon monox detector in home: Yes Do you feel safe at home: Yes Do you feel safe in your relationship?: Yes
[2025-06-12 14:00] LABS: Abs Immature Grans 0.01 10^3/uL (0.0-0.06); HCT 42.0 % (40.0-50.0); HGB 14.1 g/dL (13.5-17.5); Immature Grans % 0.1 %; MCH 32.1 pg (27.0-33.0); MCHC 33.6 % (32.0-36.0); MCV 96 fL (80-95); MPV 9.2 fL (8.0-11.0); Platelet Count 190 10^3/uL (130-400); RBC 4.39 10^6/uL (4.36-5.78); RDW 12.7 % (11.8-14.1); RDW-SD 45.3 fL; WBC 6.73 10^3/uL (4.4-10.8)
[2025-06-12 14:19] LABS: Troponin I 7 ng/L (<54)
[2025-06-12 14:20] LABS: Magnesium 2.4 mg/dL (1.6-2.6)
[2025-06-12 14:51] LABS: ALT 16 U/L (10-49); AST 17 U/L (<34); Albumin 4.4 g/dL (3.4-5.0); Alkaline Phosphatase 64 U/L (46-116); Anion Gap 9.3 mmol/L (3-11); BUN 91 mg/dL (9-23); Bilirubin, Total 0.40 mg/dL (0.2-1.2); CO2 20.7 mmol/L (20.0-31.0); Calcium 8.9 mg/dL (8.3-10.6); Chloride 110 mmol/L (98-107); Glucose 106 mg/dL (74-106); Potassium 5.8 mmol/L (3.5-5.1); Sodium 140 mmol/L (136-145); Total Protein 7.2 g/dL (5.7-8.2)
[2025-06-12] MEDS: Sodium Zirconium Cyclosilicate 10 GM PKT PO (15:09)
[2025-06-12 15:12] LABS: Troponin I 7 ng/L (<54)
[2025-06-12] MEDS: Normal Saline 500 ML 1000 ML IV (15:16)
--- NOTE | 2025-06-12 15:34 | W.PM.HP.N ---
Date of service: 06/12/25 Time of Service: 15:57 Assessment and Plan Assessment and plan (1) Acute kidney injury superimposed on stage 4 chronic kidney disease: Status: Acute Assessment and plan: As per HPI, IVF in the ED -most likely prerenal in the setting of weight loss and munjaro causing daily diarrhea 3-4/ 7days , and ongoing up-titration of BP medicines- now take chlorthalidone daily Continue slow IVF NS at 75cc/hr BMP I&O Post-void bladder scan X1 Hypotension has resolved on admission to the floor orthostatic VS in AM (2) Hyperkalemia: Status: Acute Assessment and plan: Presented in the ED with a potassium level at 5.8 in the setting of NOLAN on CKD stage IV, Lokelma administered in the ED BMP at 1800 Consider reordering Lokelma for potassium above 5.7 and or EKG changes showing myocyte irritability at which point calcium IV, dextrose and insulin would also be recommended Patient has had a history of hypokalemia was seen in [facility] in February 2025 for this Patient also getting prepared for renal transplant Consider nephrology consultation if hyperkalemia is not resolving BMP at 18:00 (3) Dehydration: Status: Acute Assessment and plan: as per point 1 I&O (4) Heart failure with mildly reduced ejection fraction (HFmrEF, 41-49%): Status: Acute Assessment and plan: Last LVEF 44% in 2020 with GMDT management Continue Jardiance, carvedilol hold diuretics and ARBs (5) Hyperlipidemia: Status: Chronic Assessment and plan: Continue high intensity statin (6) Coronary artery disease: Status: Chronic Assessment and plan: History of MT in 2018 with CABG and stent, no exacerbation will continue outpatient medicine regimen with ASA, statin (7) Type 2 diabetes mellitus: Status: Chronic Assessment and plan: [id number] testing of glucose ACHS and SSI coverage AC BMP in a.m. (8) On deep vein thrombosis (DVT) prophylaxis: Status: Acute Assessment and plan: Lovenox subcutaneous CBC in AM (9) Hypertension: Status: Chronic Assessment and plan: Will hold blood pressure meds at this time until urine treatment regimen as hypotension resolves as per point 1 (10) Obesity, Class I, BMI 30.0-34.9 (see actual BMI): Status: Chronic Assessment and plan: On present peptide at home, will hold at this time to continue as per PCP recommendation (11) Discharge planning issues: Status: Acute Assessment and plan: Discharge in 2 to 3 days if nephrology not required Discussed with Dr. Zheng History of Present Illness History of Present Illness Chief Complaint: dizziness Narrative: This 59-year-old male patient with past medical history of CKD stage IV, hypertension, diabetes type 2, heart failure with moderately reduced ejection fraction last LVEF 44% in 2020, myocardial infarction x 2, cholelithiasis with cholecystectomy scheduled for 06/25/2025 presented in the ED today for evaluation of dizziness and hypotension. The patient reported blood pressure in the 90s systolic yesterday than usual being 130 over 80s. Also reported intermittent dizziness for months worsening today. Workup in the ED was significant for a potassium of 5.8 with BUN creatinine of 91 and 4.18 with last creatinine at 3.6. EKG showed sinus rhythm with probable ectopic atrial rhythm with old left bundle branch block similar to previous; no signs of myocyte instability or coronary occlusion. The patient has been followed by nephrology at [facility] and is preparing for kidney transplant. In the ED patient was treated with IV fluids and Lokelma and will be admitted to the medical surgical floor for evaluation and management of NOLAN on CKD, hyperkalemia. FULL CODE STATUS confirmed Patient reports :dizziness, less drinking today only, heart burn and reflux X2 lately Patient denies: chills, fever, headache, chest pain, nausea, vomiting, diarrhea, oliguria, dysuria Review of Systems All systems reviewed & are unremarkable except as noted in HPI and below PFSH All Active Problems (Updated 06/12/25 @ 16:16 by Deloris Judd APRN) Dehydration (Acute) Discharge planning issues (Acute) On deep vein thrombosis (DVT) prophylaxis (Acute) Coronary artery disease (Chronic) Diabetes (Chronic) Heart failure with mildly reduced ejection fraction (HFmrEF, 41-49%) (Acute) Acute kidney injury superimposed on stage 4 chronic kidney disease (Acute) Hypovolemia (Acute) Acute hypotension (Acute) NOLAN (acute kidney injury) (Acute) Former smoker (Acute) Screening for prostate cancer (Acute) Encounter for pre-transplant evaluation for kidney transplant (Acute ~03/05/25) [facility] [place] note 03/05/25.HE Hyperparathyroidism, unspecified (Acute) 02/26/25 f/u [facility] Nephrology Hyperkalemia (Acute ~02/2025) 02/26/25 ov at Nephrology Chronic kidney disease, stage 4 (severe) (Acute ~02/2025) 02/26/25 F/U with Nephrology, was stage 3 now advanced to stage 4 Abdominal wall bulge (Acute) Rectus diastasis (Acute) FUNG (dyspnea on exertion) (Acute ~05/2022) Colonoscopy refused (Acute) Hypovitaminosis D (Acute ~01/2022) 12/22/22 Nephrology 02/26/25 F/u with Nephrology CKD (chronic kidney disease) stage 3, GFR 30-59 ml/min (Acute) 12/22/22 Nephrology 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 (Chronic ~05/2021) Nephrotic range proteinuria (Acute) CHF (congestive heart failure) (Chronic ~01/2021) LVEF 44% 03/1203/12/13 stress echo [facility] [place]: EF 60% no ischemia History of coronary artery bypass graft x 2 (Chronic 11/01/15) Hypertension (Chronic) Hyperlipidemia (Chronic) Type 2 diabetes mellitus (Chronic) Microalbuminuria due to type 2 diabetes mellitus (Chronic 01/17/17) Obesity, Class I, BMI 30.0-34.9 (see actual BMI) (Chronic 12/22/14) Spinal stenosis at L4-L5 level (Chronic 12/25/14) Medical History Acute kidney injury 02/13/24 Nephrology, consult d/t proteinuria Pneumonia (08/02/13) Fracture, ribs (08/02/13) Surgical History Coronary Artery Bypass Gaft (CABG) (11/01/15) Haim Valentine MD [facility] [place] Angioplasty Family History Mother Alcohol abuse Essential hypertension Father Essential hypertension Hyperlipidemia Vocal cord cancer XRT Sister Essential hypertension Social History Smoking/Tobacco Use Status: Former Tobacco Use Quit Date: 07/23/11 Smoking risk assessment performed?: Yes Alcohol Intake: current Alcohol Intake frequency: a few times a week Alcohol type: wine Drug use: Never Substance use type: does not use Adopted: No Household members: spouse and other Details: son in college Number of Children: 3 number of grandchildren: 1 Communication Needs: Corrective Lenses current occupation: works for [employer] What is your relationship status?: Panel score (0-1 are the most socially isolated patients): 1 What type of physical activity do you participate in: none Seatbelt use: always Drive intox or ride w/intox lead driver: No Working smoke detector in home: Yes Carbon monox detector in home: Yes Do you feel safe at home: Yes Do you feel safe in your relationship?: Yes Meds Allergies and Home Medications Allergies Allergy/AdvReac Type Severity Reaction Status Date / Time atorvastatin Allergy Unknown muscle pain Verified 06/12/25 13:23 lisinopril AdvReac Mild cough Verified 06/12/25 13:23 Home Medications ?Medication ?Instructions ?Recorded ?Confirmed ?Type aspirin 81 mg tablet,delayed 81 mg PO DAILY 11/25/12 06/12/25 History release flash glucose scanning reader #1 ea 07/05/21 06/12/25 Rx (FreeStyle [place] 2 [place]) cholecalciferol (vitamin D3) 50 50 mcg PO DAILY 02/07/22 06/12/25 History mcg (2,000 unit) capsule carvedilol 25 mg tablet (Coreg) 25 mg PO BID 10/10/22 06/12/25 History flash glucose sensor (FreeStyle #6 ea 09/09/24 06/12/25 Rx Arnold 2 Sensor kit) furosemide 20 mg tablet 40 mg (2 x 20 mg) PO DAILY PRN 10/21/24 06/12/25 Rx edema #180 tabs blood sugar diagnostic (Blood #100 ea 11/14/24 06/12/25 Rx Glucose Test strips) blood-glucose meter #1 ea 11/14/24 06/12/25 Rx lancets 32 gauge #100 ea 11/14/24 06/12/25 Rx tirzepatide 5 mg/0.5 mL 5 mg subcut QWEEK 03/12/25 06/12/25 History subcutaneous pen injector (Teo) doxazosin 1 mg tablet 2 mg PO DAILY 03/26/25 06/12/25 History olmesartan 40 mg tablet (Benicar) 40 mg PO DAILY #90 tabs 03/26/25 06/12/25 Rx rosuvastatin 20 mg tablet 20 mg PO DAILY #90 tab-caps 03/26/25 06/12/25 Rx famotidine 40 mg tablet 40 mg PO DAILY #90 tabs 05/07/25 06/12/25 Rx chlorthalidone 25 mg tablet 12.5 mg PO DIRECTED 06/12/25 06/12/25 History empagliflozin 25 mg tablet 25 mg PO DAILY 06/12/25 06/12/25 History (Jardiance) Exam Narrative Exam Narrative: This 59 years old male patient looking of stated age, in no acute distress, non-icteric sclera,no JVD, slightly dry mucous membranes, alert oriented x 4, no focal neurological deficit, moves all 4 extremities, unlabored breathing clear lungs, S1-S2 regular heart cardiac murmur, abdomen is nondistended soft nontender, CVA tenderness, no edema to lower extremities. Results Labs 06/12/25 13:53 06/12/25 13:53 Labs: Laboratory Results - last 24 hr 06/12/25 06/12/25 13:53 14:46 WBC 6.73 RBC 4.39 Hgb 14.1 Hct 42.0 MCV 96 H MCH 32.1 MCHC 33.6 RDW 12.7 Plt Count 190 MPV 9.2 Immature Gran % 0.1 Neutrophils % 63.6 Lymphocytes % 20.7 Monocytes % 10.4 Eosinophils % 4.5 Basophils % 0.7 Nucleated RBC % 0.0 Absolute Neutrophils 4.28 Absolute Lymphocytes 1.39 Absolute Monocytes 0.70 Absolute Eosinophils 0.30 Absolute Basophils 0.05 Sodium 140 Potassium 5.8 H Chloride 110 H Carbon Dioxide 20.7 Anion Gap 9.3 BUN 91 H* Creatinine 4.18 H* Est GFR (CKD-EPI 2020) 14.58 Glucose 106 Calcium 8.9 Magnesium 2.4 Total Bilirubin 0.40 AST 17 ALT 16 Alkaline Phosphatase 64 Troponin I 7 7 NT-Pro-B Natriuret Pep 172 Total Protein 7.2 Albumin 4.4 Last Vital Signs Temp 36.6 C 06/12/25 13:19 Pulse 59 L 06/12/25 15:10 Resp 17 06/12/25 15:10 BP 101/62 06/12/25 15:00 Pulse Ox 97 06/12/25 15:10 Time Spent Time spent with Patient: >75 minutes Time was spent: preparing to see the patient(eg.review tests), obtaining and/or reviewing separately otained hiistory, ordering medications,tests, procedures, referring, communicating with other health post acute care nurse practitioner, indepentently interpreting results, counseling the patient, care coordination and other
--- NOTE | 2025-06-12 16:20 | W.PC.ACHO ---
Registration Status: REG ER Primary Language: Preferred Language: Azeri ED Information & Data Chief Complaint Dizzy/Sync 06/12/25 13:57 Triage Note pt was seen by regular md 06/12/25 13:19 yesterday and had low bp and some dizzyness and today symptoms are becoming worse Medical / Surgical History (Last Reviewed 06/12/25 @ 14:03 by Seamus Smith MD) Acute kidney injury Pneumonia (08/02/13) Fracture, ribs (08/02/13) (Last Reviewed 06/12/25 @ 14:03 by Seamus Smith MD) Coronary Artery Bypass Gaft (CABG) (11/01/15) Angioplasty Most Recent Vital Signs Temperature 36.6 C 06/12/25 13:19 Pulse 59 L 06/12/25 15:10 Pulse 60 06/12/25 15:10 Respiratory Rate 17 06/12/25 15:10 Blood Pressure 101/62 06/12/25 15:00 Blood Pressure Mean 72 06/12/25 15:00 Pulse Oximetry 97 06/12/25 15:10 Pain Level 0 06/12/25 13:19 Allergies atorvastatin Allergy (Unknown, Verified 06/12/25 13:23) muscle pain lisinopril Adverse Reaction (Mild, Verified 06/12/25 13:23) cough IV IV Catheter Type [Right Saline Lock Antecubital] IV Catheter Gauge [Right 18 Antecubital] Diet Orders Category Date Time Status Diabetes Consistent CHO/Heart Healthy [DIET] Nutrition 06/12/25 Dinner Active Diagnostics 06/12/25 06/12/25 06/12/25 Range/Units 18:00 14:46 13:53 WBC 6.73 (4.4-10.8) 10^3/uL RBC 4.39 (4.36-5.78) 10^6/uL Hgb 14.1 (13.5-17.5) g/dL Hct 42.0 (40.0-50.0) % MCV 96 H (80-95) fL MCH 32.1 (27.0-33.0) pg MCHC 33.6 (32.0-36.0) % RDW 12.7 (11.8-14.1) % Plt Count 190 (130-400) 10^3/uL MPV 9.2 (8.0-11.0) fL Immature Gran % 0.1 % Neutrophils % 63.6 % Lymphocytes % 20.7 % Monocytes % 10.4 % Eosinophils % 4.5 % Basophils % 0.7 % Nucleated RBC % 0.0 (0.0-0.3) % Absolute Neutrophils 4.28 (1.2-6.7) 10^3/uL Absolute Lymphocytes 1.39 (1.2-3.4) 10^3/uL Absolute Monocytes 0.70 (0.1-0.8) 10^3/uL Absolute Eosinophils 0.30 (0.0-0.7) 10^3/uL Absolute Basophils 0.05 (0.0-0.2) 10^3/uL Sodium 140 (136-145) mmol/L Potassium Pending 5.8 H (3.5-5.1) mmol/L Chloride 110 H (98-107) mmol/L Carbon Dioxide 20.7 (20.0-31.0) mmol/L Anion Gap 9.3 (3-11) mmol/L BUN 91 H* (9-23) mg/dL Creatinine 4.18 H* (0.73-1.18) mg/dL Est GFR (CKD-EPI 2020) 14.58 (mL/min/1.73m2) Glucose 106 (74-106) mg/dL Calcium 8.9 (8.3-10.6) mg/dL Magnesium 2.4 (1.6-2.6) mg/dL Total Bilirubin 0.40 (0.2-1.2) mg/dL AST 17 (<34) U/L ALT 16 (10-49) U/L Alkaline Phosphatase 64 (46-116) U/L Troponin I 7 7 (<54) ng/L NT-Pro-B Natriuret Pep 172 (<300) pg/mL Total Protein 7.2 (5.7-8.2) g/dL Albumin 4.4 (3.4-5.0) g/dL Intake and Output - 24 Hour Total 06/12/25 13:17 thru 06/12/25 15:45 Intake Total 510 Balance 510 Weight 104.326 kg Intake: IV 510 Falls Risk Assessment History of Falls No History 06/12/25 13:35 Contributing Factors Unstable 06/12/25 13:35 Ambulatory Aids Independent 06/12/25 13:35 Tubes/Lines With any additional score 06/12/25 13:35 Gait Evaluation No gait disturbance 06/12/25 13:35 Cognition No cognitive impairment 06/12/25 13:35 Fall Total Score 23 06/12/25 13:35 Level of Risk Standard/Low Risk 06/12/25 13:35 Attestation Statement: By documenting the first initial, last name, and credentials of the reporting nurse below, both parties acknowledge that all relevant information regarding the patient handoff has been communicated, and that all questions have been addressed to ensure continuity and safety of care. Additional Patient Information/Comments: Called ED at 1620 to obtain report, Maren RN with another patient, awaiting call back for hand off Report Received From:
--- NOTE | 2025-06-12 16:38 | W.PC.ACHO ---
Registration Status: REG ER Primary Language: Preferred Language: French ED Information & Data Chief Complaint Dizzy/Sync 06/12/25 13:57 Triage Note pt was seen by regular md 06/12/25 13:19 yesterday and had low bp and some dizzyness and today symptoms are becoming worse Medical / Surgical History (Last Reviewed 06/12/25 @ 14:03 by Seamus Smith MD) Acute kidney injury Pneumonia (08/02/13) Fracture, ribs (08/02/13) (Last Reviewed 06/12/25 @ 14:03 by Seamus Smith MD) Coronary Artery Bypass Gaft (CABG) (11/01/15) Angioplasty Most Recent Vital Signs Temperature 36.6 C 06/12/25 13:19 Pulse 58 L 06/12/25 16:21 Pulse 57 L 06/12/25 16:21 Respiratory Rate 16 06/12/25 16:32 Respiratory Effort Normal, Non-Labored 06/12/25 16:32 Respiratory Depth Normal 06/12/25 16:32 Respiratory Pattern Normal 06/12/25 16:32 Blood Pressure 105/63 06/12/25 16:15 Blood Pressure Mean 76 06/12/25 16:15 Pulse Oximetry 98 06/12/25 16:21 Pain Level 0 06/12/25 13:19 Allergies atorvastatin Allergy (Unknown, Verified 06/12/25 13:23) muscle pain lisinopril Adverse Reaction (Mild, Verified 06/12/25 13:23) cough IV IV Catheter Type [Right Saline Lock Antecubital] IV Catheter Gauge [Right 18 Antecubital] Diet Orders Category Date Time Status Diabetes Consistent CHO/Heart Healthy [DIET] Nutrition 06/12/25 Dinner Active Diagnostics 06/12/25 06/12/25 06/12/25 Range/Units 18:00 16:31 14:46 WBC (4.4-10.8) 10^3/uL RBC (4.36-5.78) 10^6/uL Hgb (13.5-17.5) g/dL Hct (40.0-50.0) % MCV (80-95) fL MCH (27.0-33.0) pg MCHC (32.0-36.0) % RDW (11.8-14.1) % Plt Count (130-400) 10^3/uL MPV (8.0-11.0) fL Immature Gran % % Neutrophils % % Lymphocytes % % Monocytes % % Eosinophils % % Basophils % % Nucleated RBC % (0.0-0.3) % Absolute Neutrophils (1.2-6.7) 10^3/uL Absolute Lymphocytes (1.2-3.4) 10^3/uL Absolute Monocytes (0.1-0.8) 10^3/uL Absolute Eosinophils (0.0-0.7) 10^3/uL Absolute Basophils (0.0-0.2) 10^3/uL Sodium (136-145) mmol/L Potassium Pending (3.5-5.1) mmol/L Chloride (98-107) mmol/L Carbon Dioxide (20.0-31.0) mmol/L Anion Gap (3-11) mmol/L BUN (9-23) mg/dL Creatinine (0.73-1.18) mg/dL Est GFR (CKD-EPI 2020) (mL/min/1.73m2) Glucose (74-106) mg/dL Calcium (8.3-10.6) mg/dL Magnesium (1.6-2.6) mg/dL Total Bilirubin (0.2-1.2) mg/dL AST (<34) U/L ALT (10-49) U/L Alkaline Phosphatase (46-116) U/L Troponin I 7 (<54) ng/L NT-Pro-B Natriuret Pep (<300) pg/mL Total Protein (5.7-8.2) g/dL Albumin (3.4-5.0) g/dL Urine Color Pending Urine Clarity Pending Urine pH Pending Ur Specific [place] Pending Urine Protein Pending Urine Ketones Pending Urine Blood Pending Urine Nitrite Pending Urine Bilirubin Pending Urine Urobilinogen Pending Ur Leukocyte Esterase Pending Urine Glucose Pending 06/12/25 Range/Units 13:53 WBC 6.73 (4.4-10.8) 10^3/uL RBC 4.39 (4.36-5.78) 10^6/uL Hgb 14.1 (13.5-17.5) g/dL Hct 42.0 (40.0-50.0) % MCV 96 H (80-95) fL MCH 32.1 (27.0-33.0) pg MCHC 33.6 (32.0-36.0) % RDW 12.7 (11.8-14.1) % Plt Count 190 (130-400) 10^3/uL MPV 9.2 (8.0-11.0) fL Immature Gran % 0.1 % Neutrophils % 63.6 % Lymphocytes % 20.7 % Monocytes % 10.4 % Eosinophils % 4.5 % Basophils % 0.7 % Nucleated RBC % 0.0 (0.0-0.3) % Absolute Neutrophils 4.28 (1.2-6.7) 10^3/uL Absolute Lymphocytes 1.39 (1.2-3.4) 10^3/uL Absolute Monocytes 0.70 (0.1-0.8) 10^3/uL Absolute Eosinophils 0.30 (0.0-0.7) 10^3/uL Absolute Basophils 0.05 (0.0-0.2) 10^3/uL Sodium 140 (136-145) mmol/L Potassium 5.8 H (3.5-5.1) mmol/L Chloride 110 H (98-107) mmol/L Carbon Dioxide 20.7 (20.0-31.0) mmol/L Anion Gap 9.3 (3-11) mmol/L BUN 91 H* (9-23) mg/dL Creatinine 4.18 H* (0.73-1.18) mg/dL Est GFR (CKD-EPI 2020) 14.58 (mL/min/1.73m2) Glucose 106 (74-106) mg/dL Calcium 8.9 (8.3-10.6) mg/dL Magnesium 2.4 (1.6-2.6) mg/dL Total Bilirubin 0.40 (0.2-1.2) mg/dL AST 17 (<34) U/L ALT 16 (10-49) U/L Alkaline Phosphatase 64 (46-116) U/L Troponin I 7 (<54) ng/L NT-Pro-B Natriuret Pep 172 (<300) pg/mL Total Protein 7.2 (5.7-8.2) g/dL Albumin 4.4 (3.4-5.0) g/dL Urine Color Urine Clarity Urine pH Ur Specific [place] Urine Protein Urine Ketones Urine Blood Urine Nitrite Urine Bilirubin Urine Urobilinogen Ur Leukocyte Esterase Urine Glucose Intake and Output - 24 Hour Total 06/12/25 13:17 thru 06/12/25 15:45 Intake Total 510 Balance 510 Weight 104.326 kg Intake: IV 510 Falls Risk Assessment History of Falls No History 06/12/25 13:35 Contributing Factors Unstable 06/12/25 13:35 Ambulatory Aids Independent 06/12/25 13:35 Tubes/Lines With any additional score 06/12/25 13:35 Gait Evaluation No gait disturbance 06/12/25 13:35 Cognition No cognitive impairment 06/12/25 13:35 Fall Total Score 23 06/12/25 13:35 Level of Risk Standard/Low Risk 06/12/25 13:35 Problems (Last Reviewed 06/12/25 @ 14:03 by Seamus Smith MD) Dehydration (Acute) Discharge planning issues (Acute) On deep vein thrombosis (DVT) prophylaxis (Acute) Coronary artery disease (Chronic) Heart failure with mildly reduced ejection fraction (HFmrEF, 41-49%) (Acute) Acute kidney injury superimposed on stage 4 chronic kidney disease (Acute) Hyperkalemia (Acute ~02/2025) Hypertension (Chronic) Hyperlipidemia (Chronic) Type 2 diabetes mellitus (Chronic) Obesity, Class I, BMI 30.0-34.9 (see actual BMI) (Chronic 12/22/14) Attestation Statement: By documenting the first initial, last name, and credentials of the reporting nurse below, both parties acknowledge that all relevant information regarding the patient handoff has been communicated, and that all questions have been addressed to ensure continuity and safety of care. Additional Patient Information/Comments: report received from ED RN, pt admitted due to trending low blood pressure and elevated potassium levels. patient stable, independent in room. declines CP, dizziness, lightheadedness. potassium Report Received From:
[2025-06-12 16:52] LABS: Glucose 250 mg/dL (Negative)
[2025-06-12] MEDS: Normal Saline 1,000 ML 75 ML IV (16:55)
[2025-06-12 17:01] LABS: C & S Indicated? No; WBC Negative HPF (0-5)
[2025-06-12 18:25] LABS: Potassium 5.2 mmol/L (3.5-5.1)
[2025-06-12] MEDS: Rosuvastatin 20 MG TAB PO (23:13)
[2025-06-13] VITALS (7 sets, daily range): BP systolic 100–139; BP diastolic 67–79; PULSE 61–72; RESP 14–17; TEMP 36.4–37.3; O2SAT 95–100
[2025-06-13] MEDS: Normal Saline 1,000 ML 75 ML IV (06:24)
[2025-06-13 06:32] LABS: Abs Immature Grans 0.02 10^3/uL (0.0-0.06); HCT 39.9 % (40.0-50.0); HGB 13.3 g/dL (13.5-17.5); Immature Grans % 0.3 %; MCH 31.6 pg (27.0-33.0); MCHC 33.3 % (32.0-36.0); MCV 95 fL (80-95); MPV 9.1 fL (8.0-11.0); Platelet Count 166 10^3/uL (130-400); RBC 4.21 10^6/uL (4.36-5.78); RDW 12.6 % (11.8-14.1); RDW-SD 43.7 fL; WBC 6.35 10^3/uL (4.4-10.8)
[2025-06-13 06:55] LABS: Magnesium 2.2 mg/dL (1.6-2.6)
[2025-06-13 07:18] LABS: Anion Gap 11.1 mmol/L (3-11); BUN 76 mg/dL (9-23); CO2 18.9 mmol/L (20.0-31.0); Calcium 8.6 mg/dL (8.3-10.6); Chloride 113 mmol/L (98-107); Glucose 76 mg/dL (74-106); Potassium 4.7 mmol/L (3.5-5.1); Sodium 143 mmol/L (136-145)
--- NOTE | 2025-06-13 08:11 | PDOC.CMIN ---
Date of service: 06/13/25 Time of Service: 08:11 Care Management Initial Assmt Initial Assessment Reason for Hospitalization: Acute kidney injury superimposed on stage 4 chronic kidney disease Functional Status/Living Situation Patient Presentation: Rico was awake and lying in bed with CM met with him, his and daughter Lucila are present at the bedside. Patient lives in [place] with Marbella and is active and independent at baseline. He works at the [place] [employer] and would appreciate a work note supporting his hospital stay. Marbella shared with CM that she works at [facility] as an OB RN. She requests that Rico see a M.D, rather than an N.P., no specific concern was reported. CM reviewed request with the hospitalists currently assigned to him. CM will follow. Town of Residence: [place] Resides with: Spouse ( Marbella) Significant Other/Family: Local Natural Supports: Marbella Son's Cullen and Aryan Gaytan Employment Status: Employed ([employer] [employer]) Instrumental Activities of Daily Living (ADLs): Independent Medications Medication Management: No Issues/Barriers identified Physical Functioning/Mobility Assistive Device: None Advance Directives Advance Directives: Do you have an Advance Directive: N 01/21/13, 11:24 AD On File at [facility]: N 01/21/13, 11:24 Date Asked 05/09/25 05/09/25, 08:16 AD Date Reviewed COLST On File at [facility] COLST Date Scanned Code Status Resuscitation Status Full Code Portal Pt does not currently have a portal and education provided: Yes Insurance Coverage/Financial Issues Insurance: Health Plans ([facility] ONLY!) - [id number] Care Team Visit Care Team Role Provider Type Deloris Judd APRN MD [facility] STAFF PHYSICIAN Preston Moffett APRN Primary Care Provider NURSE PRACTITIONER Heather Bejarano RDN, [facility] Other Providers MANAGER OF BROADCAST CONTENT Michael Justin RDN Other Providers MANAGER OF BROADCAST CONTENT Seamus Smith MD Emergency Provider [facility] STAFF PHYSICIAN Vinicius Zheng MD Admit Provider [facility] STAFF PHYSICIAN Attending Provider Discharge Potential Discharge Needs: PCP F/U Appt Anticipated Barriers to Discharge: None Identified Patient/Family Education Needs: Review discharge instructions, discuss Ask Me Three Transportation: Private vehicle Plan: Anticipate Rico will discharge home via private vehicle with once medically cleared. He will follow up with community providers and continue per his discharge plan of care. No new services are anticipated on discharge. CM will follow. Social Determinants of Health Screening Social Determinants of health last assessed in clinic: 06/13/25 Will the Patient Participate in the Screening?: Yes Do you worry about having a steady place to live?: no Problems where you live: no known problems In the past 12 months, have you had to go without electric, gas, oil or water in your home?: no 1. Within the past 12 months, we worried whether our food would run out before we got money to buy more.: Never true 2. Within the past 12 months, the food we bought just didn't last and we didn't have money to get more.: Never true Has lack of transportation kept you from medical appointments or from doing things needed for daily living?: no Has anyone in your life made you feel unsafe or unsupported?: no How hard is it for you to pay for the very basics like food, housing, medical care, and heating? Would you say it is:: Not hard at all Do you want help finding or keeping work or a job?: I do not need or want help If for any reason you need help with day-to-day activities such as bathing, preparing meals, shopping, managing finances, etc., do you get the help you need?: I don?t need any help How often do you feel lonely or isolated from those around you?: Never Do you speak a language other than Tajik at home?: Yes Does the patient want assistance with any of the above?: No Health Related Social Needs Health related social needs: education (Z55.6) PFSH All Active Problems (Updated 06/12/25 @ 16:16 by Deloris Jdud APRN) Dehydration (Acute) Discharge planning issues (Acute) On deep vein thrombosis (DVT) prophylaxis (Acute) Coronary artery disease (Chronic) Diabetes (Chronic) Heart failure with mildly reduced ejection fraction (HFmrEF, 41-49%) (Acute) Acute kidney injury superimposed on stage 4 chronic kidney disease (Acute) Hypovolemia (Acute) Acute hypotension (Acute) NOLAN (acute kidney injury) (Acute) Former smoker (Acute) Screening for prostate cancer (Acute) Encounter for pre-transplant evaluation for kidney transplant (Acute ~03/05/25) [facility] note 03/05/25.HE Hyperparathyroidism, unspecified (Acute) 02/26/25 f/u [facility] Nephrology Hyperkalemia (Acute ~02/2025) 02/26/25 ov at Nephrology Chronic kidney disease, stage 4 (severe) (Acute ~02/2025) 02/26/25 F/U with Nephrology, was stage 3 now advanced to stage 4 Abdominal wall bulge (Acute) Rectus diastasis (Acute) FUNG (dyspnea on exertion) (Acute ~05/2022) Colonoscopy refused (Acute) Hypovitaminosis D (Acute ~01/2022) 12/22/22 Nephrology 02/26/25 F/u with Nephrology CKD (chronic kidney disease) stage 3, GFR 30-59 ml/min (Acute) 12/22/22 Nephrology 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 (Chronic ~05/2021) Nephrotic range proteinuria (Acute) CHF (congestive heart failure) (Chronic ~01/2021) LVEF 44% 03/1203/12/13 stress echo [facility]: EF 60% no ischemia History of coronary artery bypass graft x 2 (Chronic 11/01/15) Hypertension (Chronic) Hyperlipidemia (Chronic) Type 2 diabetes mellitus (Chronic) Microalbuminuria due to type 2 diabetes mellitus (Chronic 01/17/17) Obesity, Class I, BMI 30.0-34.9 (see actual BMI) (Chronic 12/22/14) Spinal stenosis at L4-L5 level (Chronic 12/25/14) Medical History Acute kidney injury 02/13/24 Nephrology, consult d/t proteinuria Pneumonia (08/02/13) Fracture, ribs (08/02/13) Surgical History Coronary Artery Bypass Gaft (CABG) (11/01/15) Haim Valentine MD [facility] Angioplasty Family History Mother Alcohol abuse Essential hypertension Father Essential hypertension Hyperlipidemia Vocal cord cancer XRT Sister Essential hypertension Social History Smoking/Tobacco Use Status: Former Tobacco Use Quit Date: 07/23/11 Smoking risk assessment performed?: Yes Alcohol Intake: current Alcohol Intake frequency: a few times a week Alcohol type: wine Drug use: Never Substance use type: does not use Adopted: No Household members: spouse and other Details: son in college Housing: house Number of Children: 3 number of grandchildren: 1 Communication Needs: Corrective Lenses current occupation: works for [employer] What is your relationship status?: Panel score (0-1 are the most socially isolated patients): 1 What type of physical activity do you participate in: none Seatbelt use: always Drive intox or ride w/intox jukebox route driver: No Working smoke detector in home: Yes Carbon monox detector in home: Yes Do you feel safe at home: Yes Do you feel safe in your relationship?: Yes
[2025-06-13] MEDS: Cholecalciferol (Vitamin D3) 1,000 UNIT TAB 2000 UNITS PO (08:35)
[2025-06-13] MEDS: Aspirin E.C. 81 MG TABEC PO (08:35)
[2025-06-13] MEDS: Enoxaparin 30 MG/0.3 ML SYR SC (08:36)
--- NOTE | 2025-06-13 09:58 | PGE_ITS ---
Date of Service Date of service: 06/13/25 Time of Service: 09:58 Assessment and Plan Assessment and plan (1) Acute kidney injury superimposed on stage 4 chronic kidney disease: Status: Acute Assessment and plan: Impproving Cr and BUN - close to baseline IV crystalloid completed this PM - no orthostasis Ongoing reintroduction of of HFmrEF and BP medicines- -Doxazosin restarted at 1/2 dosing - -Olmesartan equivalent with Losartan in AM - if tolerated patient to be discharged on home dose Olmesartan (GDMT for HFmrEF) The patient had increased his chlorthalidone to full dose of 12.5 mg daily and furosemide to daily as well lately Encourage oral hydration Trend BMP , I&O Orthostatic vital signs negative and asymptomatic : This was most likely pre- renal originally in the setting on ongoing medicines that could exacerbated ADR on the renal system (2) Hyperkalemia: Status: Acute Assessment and plan: Resolved Presented in the ED with a potassium level at 5.8 in the setting of NOLAN on CKD stage IV, Lokelma administered in the ED EKG showed no myocardium irritability on admission Patient has had a history of hyperkalemia was seen [place] [facility] [place] for this Work-up for renal transplant in progress - with [facility] [place] Consideration given to nephrology consultation if hyperkalemia and renal function had not been improving - following expected progression BMP in AM (3) Dehydration: Status: Acute Assessment and plan: as per point 1 Resolving Ongoing I&O (4) Pre-syncope: Status: Acute Assessment and plan: In the setting of point 1, 2 and 11 Reported dizziness worsening with bending down and known SBP in the 90's - stiil took antihypertensive No report of syncopal episodes Telemetry troponin negative X2 on admit and EKG negative for coronary occlusion- ACS symptomatology and findings negative Echo on Sunday VS outpatient echo (5) Heart failure with mildly reduced ejection fraction (HFmrEF, 41-49%): Status: Acute Assessment and plan: Last LVEF 44% in 2020 with GMDT management Continue Jardiance Ongoing Carvedilol - HS dosing decreased by 50% Telemetry: 1 AVB with known LBBB- mobitz I X1 for 3sec last night Resume ARBs in AM hold diuretics - consider reduced dosing when reinstated Daily weight (6) Hyperlipidemia: Status: Chronic Assessment and plan: Ongoing high intensity statin (7) Coronary artery disease: Status: Chronic Assessment and plan: History of [place] in 2018 with CABG and stent, no exacerbation Continue outpatient medicine regimen (8) Type 2 diabetes mellitus: Status: Chronic Assessment and plan: continue POCT of glucose AC & HS and SSI coverage AC BMP in AM (9) On deep vein thrombosis (DVT) prophylaxis: Status: Acute Assessment and plan: Continue LMWH subcutaneous CBC in AM (10) Hypertension: Status: Chronic Assessment and plan: No orthostasis, BP 139/82 this PM -Gradual resumption of antihypertensive medicines - with 1/2 dose of Cardura and ARBs (11) Obesity, Class I, BMI 30.0-34.9 (see actual BMI): Status: Chronic Assessment and plan: On present weekly Lwygfwuf-jefi-ouiljkc 1 injections at home, will hold at this time to continue as per PCP recommendation- has been having diarrhea 4/7 days (12) Discharge planning issues: Status: Acute Assessment and plan: Discharge in 2 to 3 days Echocardiogram inpatient VS outpatient - patient is stable s/p IV hydration and not symptomatic - no presyncopal episode - last LVEF 44% in 2020- family could not recall another study done since then when asked Discussed with Dr. Zheng Subjective Subjective Patient reports: no new complaints, feels better, tolerating liquids well, tolerating a regular diet, voiding w/o difficulty, bowel movement and other (No dizziness ); denies blood in stool, nausea, shortness of breath or fever Exam Narrative Exam Narrative: In no acute distress, non-icteric sclera,no JVD, moist mucous membranes, alert oriented x 4, no focal neurological deficit, unlabored breathing clear lungs bilaterally to auscultation, S1-S2 regular heart cardiac no murmur but minimally split sounds, abdomen is nondistended soft nontender, CVA tenderness, no edema to lower extremities, moves all 4 extremities,. Objective Last Vital Signs Temp 37.3 C 06/13/25 07:16 Pulse 61 06/13/25 07:16 Resp 17 06/13/25 07:16 BP 100/67 06/13/25 07:16 Pulse Ox 95 06/13/25 07:16 Laboratory Results - last 24 hr 06/12/25 06/12/25 06/12/25 13:53 14:46 16:45 WBC 6.73 RBC 4.39 Hgb 14.1 Hct 42.0 MCV 96 H MCH 32.1 MCHC 33.6 RDW 12.7 Plt Count 190 MPV 9.2 Immature Gran % 0.1 Neutrophils % 63.6 Lymphocytes % 20.7 Monocytes % 10.4 Eosinophils % 4.5 Basophils % 0.7 Nucleated RBC % 0.0 Absolute Neutrophils 4.28 Absolute Lymphocytes 1.39 Absolute Monocytes 0.70 Absolute Eosinophils 0.30 Absolute Basophils 0.05 Sodium 140 Potassium 5.8 H Chloride 110 H Carbon Dioxide 20.7 Anion Gap 9.3 BUN 91 H* Creatinine 4.18 H* Est GFR (CKD-EPI 2020) 14.58 Glucose 106 Calcium 8.9 Magnesium 2.4 Total Bilirubin 0.40 AST 17 ALT 16 Alkaline Phosphatase 64 Troponin I 7 7 NT-Pro-B Natriuret Pep 172 Total Protein 7.2 Albumin 4.4 Urine Color Yellow Urine Clarity Clear Urine pH 5.5 Ur Specific [place] 1.010 Urine Protein Negative Urine Ketones Negative Urine Blood Trace-intact H Urine Nitrite Negative Urine Bilirubin Negative Urine Urobilinogen 0.2 Ur Leukocyte Esterase Negative Urine RBC 5-10 H Urine WBC Negative Ur Epithelial Cells Few Urine Crystals Negative Urine Bacteria Rare Urine Casts Negative Urine Mucus Negative Ur Culture Indicated? No Urine Glucose 250 H 06/12/25 06/13/25 18:00 06:00 WBC 6.35 RBC 4.21 L Hgb 13.3 L Hct 39.9 L MCV 95 MCH 31.6 MCHC 33.3 RDW 12.6 Plt Count 166 MPV 9.1 Immature Gran % 0.3 Neutrophils % 53.9 Lymphocytes % 27.6 Monocytes % 11.7 Eosinophils % 5.7 Basophils % 0.8 Nucleated RBC % 0.0 Absolute Neutrophils 3.43 Absolute Lymphocytes 1.75 Absolute Monocytes 0.74 Absolute Eosinophils 0.36 Absolute Basophils 0.05 Sodium 143 Potassium 5.2 H 4.7 Chloride 113 H Carbon Dioxide 18.9 L Anion Gap 11.1 H BUN 76 H Creatinine 3.79 H* Est GFR (CKD-EPI 2020) 16.33 Glucose 76 Calcium 8.6 Magnesium 2.2 Total Bilirubin AST ALT Alkaline Phosphatase Troponin I NT-Pro-B Natriuret Pep Total Protein Albumin Urine Color Urine Clarity Urine pH Ur Specific [place] Urine Protein Urine Ketones Urine Blood Urine Nitrite Urine Bilirubin Urine Urobilinogen Ur Leukocyte Esterase Urine RBC Urine WBC Ur Epithelial Cells Urine Crystals Urine Bacteria Urine Casts Urine Mucus Ur Culture Indicated? Urine Glucose Time Spent with Patient Time Spent with Patient: >50 minutes Time was spent: preparing to see the patient(eg.review tests), obtaining and/or reviewing separately otained hiistory, ordering medications,tests, procedures, referring, communicating with other health respiratory care practitioner, indepentently interpreting results, counseling the patient, care coordination and other
[2025-06-13] MEDS: Carvedilol 25 MG TAB PO (10:53)
[2025-06-13] MEDS: Empaglifozin 25 MG TAB PO (10:53)
--- NOTE | 2025-06-13 11:16 | TELEFU_ITS ---
Date of service: 06/13/25 Time of Service: 11:16 Nutrition Note NOTE: Rico being treated for NOLAN on CKD4, dehydration. History of DMII with most recent A1c at 6.2 Mar 2025. High as 8.2 in 2020. Takes weekly tirzepatide at home along with 25mg jardiance for glucose control at home. vitamin D supplemented as well with deterioration of kidney fxn. Last UARC was 274 last January indicating microalbuminuria. GFR at 16 today. Glucose this admission is currently at target with moderate sliding scale novolog at meals for correction and continues his home jardiance dose. High K+ yesterday (routinely on furosemide) but wnl today. Weight loss of about 10kg noted over the last year per weight history in chart. Pt states mostly related to GLP-1/intentional. does not check glucose routinely at home currently. estimated energy needs: 2280kcals (rec 1800 for wt loss), 112g protein (1.5g/kg IBW), 2280mL fluid (1mL per required kcal) Educated on potassium rich foods and considering 2 high sources per day and keep rest of potassium sources low to moderate - handout on high K+ foods given. Pt with no concerns or questions. good po intake. Pt made aware of medical nutrition therapy offered at [facility] - will call if interested in working more on diet mgt of kidney disease/diabetes. will continue to monitor weight, po intake, nutrition-related labs Time Spent in Nutritional Counseling and Treatment: 10 min
--- NOTE | 2025-06-13 11:16 | PHA.REVIEW2 ---
Pharmacy Admission Review Admission Clinical Review Admission Pharmacy Review: Dehydration (Acute) Discharge planning issues (Acute) On deep vein thrombosis (DVT) prophylaxis (Acute) Heart failure with mildly reduced ejection fraction (HFmrEF, 41-49%) (Acute) Acute kidney injury superimposed on stage 4 chronic kidney disease (Acute) Hyperkalemia (Acute ~02/2025) atorvastatin Allergy (Unknown, Verified 06/12/25 13:23) muscle pain lisinopril Adverse Reaction (Mild, Verified 06/12/25 13:23) cough Resuscitation Status Full Code Height 5 ft 10 in Weight 93.8 kg Pharmacy Admission Review Renal Dosing Renal Dosing: BUN 76 mg/dL (9-23) H 06/13/25 06:00 Creatinine 3.79 mg/dL (0.73-1.18) H* 4.18 mg/dL (0.73-1.18) H* 06/13/25 06:00 06/12/25 13:53 Medications needing adjustments: Reviewed (CrCl 23 mL/min) List of meds needing interventions: Current medications are okay Anticoagulation Anticoagulation: Hgb 13.3 g/dL (13.5-17.5) L 06/13/25 06:00 Hct 39.9 % (40.0-50.0) L 06/13/25 06:00 Plt Count 166 10^3/uL (130-400) 06/13/25 06:00 Creatinine 3.79 mg/dL (0.73-1.18) H* 06/13/25 06:00 DVT Prophylaxis: Reviewed Medications: Enoxaparin (30mg daily - CrCl < 30) Relevant Labs Relevant Labs: Sodium 143 mmol/L (136-145) 06/13/25 06:00 Potassium 4.7 mmol/L (3.5-5.1) 06/13/25 06:00 Chloride 113 mmol/L (98-107) H 06/13/25 06:00 Magnesium 2.2 mg/dL (1.6-2.6) 06/13/25 06:00 Electrolytes, C-Reactive P, ESR: Reviewed DM Control DM Control: Glucose 76 mg/dL (74-106) 06/13/25 06:00 Finger Stick Blood Glucose 82 0800 Finger Stick Blood Glucose 82 0730 Finger Stick Blood Glucose 82 0719 Finger Stick Blood Glucose 82 0719 DM Control: Reviewed Insulin Dosing, Diabetic Medication: Has order for SS insulin and Jardiance 25mg daily Cardiac Review Cardiac Review: Troponin I 7 ng/L (<54) 06/12/25 14:46 NT-Pro-B Natriuret Pep 172 pg/mL (<300) 06/12/25 13:53 BP, HR, EF%: Reviewed (HR and BP WNL) List meds needing interventions: Has order for carvedilol 25mg daily and olmesartan 40mg daily (non-formulary - changed to patients own). QTc Review QTc: Reviewed (456 from 06/12/25) IV to PO Switch IV Medications: Reviewed Home Meds Home Med List reviewed: Intervened Relevent Home Meds Not ordered & why?: chlorthalidone (on hold per H+P), doxazosin (on hold per H+P), famotidine (on hold due to NOLAN per provider), furosemide (on hold per H+P) and Mounjaro (on hold per H+P) Changed olmesartan to patients own order (non-formulary). Asked nurse nurse to see if this could be brought in for the patient, waiting to hear back. Also reached out to provider as H+P stated to hold ARB. Informed provider the order is active and waiting on patient to have it brought it. Waiting to hear back. Current Meds Current Medication Order Review: Intervened Comments: Added IV admission order set
[2025-06-13] MEDS: Doxazosin 1 MG TAB PO (20:03)
[2025-06-13] MEDS: Rosuvastatin 20 MG TAB PO (20:03)
[2025-06-13] MEDS: Carvedilol 12.5 MG TAB PO (20:05)
[2025-06-14] VITALS (7 sets, daily range): BP systolic 105–118; BP diastolic 60–81; PULSE 60–67; RESP 16; TEMP 36.5–36.9; O2SAT 95–97
[2025-06-14 06:25] LABS: Abs Immature Grans 0.02 10^3/uL (0.0-0.06); HCT 42.1 % (40.0-50.0); HGB 14.2 g/dL (13.5-17.5); Immature Grans % 0.3 %; MCH 32.4 pg (27.0-33.0); MCHC 33.7 % (32.0-36.0); MCV 96 fL (80-95); MPV 9.0 fL (8.0-11.0); Platelet Count 180 10^3/uL (130-400); RBC 4.38 10^6/uL (4.36-5.78); RDW 12.5 % (11.8-14.1); RDW-SD 44.8 fL; WBC 6.75 10^3/uL (4.4-10.8)
[2025-06-14 06:46] LABS: Anion Gap 10.4 mmol/L (3-11); BUN 64 mg/dL (9-23); CO2 19.6 mmol/L (20.0-31.0); Calcium 9.5 mg/dL (8.3-10.6); Chloride 112 mmol/L (98-107); Glucose 75 mg/dL (74-106); Potassium 4.8 mmol/L (3.5-5.1); Sodium 142 mmol/L (136-145)
[2025-06-14 06:47] LABS: Magnesium 2.2 mg/dL (1.6-2.6)
[2025-06-14] MEDS: Cholecalciferol (Vitamin D3) 1,000 UNIT TAB 2000 UNITS PO (09:01)
[2025-06-14] MEDS: Losartan 50 MG TAB 100 MG PO (09:01)
[2025-06-14] MEDS: Carvedilol 25 MG TAB PO (09:01)
[2025-06-14] MEDS: Empaglifozin 25 MG TAB PO (09:02)
[2025-06-14] MEDS: Aspirin E.C. 81 MG TABEC PO (09:02)
[2025-06-14] MEDS: Enoxaparin 30 MG/0.3 ML SYR SC (09:02)
--- NOTE | 2025-06-14 12:58 | W.PM.PROGNOT ---
Date of Service Date of service: 06/14/25 Time of Service: 12:58 Assessment and Plan Assessment and plan (1) Acute kidney injury superimposed on stage 4 chronic kidney disease: Status: Acute Assessment and plan: Creatinine continues to improve now down to 3.22 Will restart furosemide at 20 mg daily today Ongoing reintroduction of of HFmrEF and BP medicines- -Doxazosin restarted at 1/2 dosing - -Olmesartan equivalent with Losartan in AM - if tolerated patient to be discharged on home dose Olmesartan (GDMT for HFmrEF) Encourage oral hydration Continue to follow BMP, daily weights and I&O. (2) Hyperkalemia: Status: Resolved Assessment and plan: Potassium 4.8 today continue following daily (3) Dehydration: Status: Resolved Assessment and plan: Was overdiuresed now resolved with IV hydration and holding diuretics Resuming Lasix at 20 mg daily monitor fluid volume status closely (4) Pre-syncope: Status: Resolved Assessment and plan: In setting of dehydration now resolved (5) Heart failure with mildly reduced ejection fraction (HFmrEF, 41-49%): Status: Acute Assessment and plan: Last LVEF 44% in 2020 with GMDT management, update when avaible. Continue Jardiance, Carvedilol - HS dosing decreased by 50% Tolerating ARB Resume furosemide 20 mg daily which is half home dose, continue to hold chlorthalidone for now Daily weight and intake and output Monitor volume status (6) Hyperlipidemia: Status: Chronic Assessment and plan: Ongoing high intensity statin (7) Coronary artery disease: Status: Chronic Assessment and plan: History of [place] in 2018 with CABG and stent, no exacerbation Continue outpatient medicine regimen (8) Type 2 diabetes mellitus: Status: Chronic Assessment and plan: Diabetic diet continue blood sugar checks AC & HS and SSI coverage AC (9) On deep vein thrombosis (DVT) prophylaxis: Status: Acute Assessment and plan: Continue LMWH subcutaneous (10) Hypertension: Status: Chronic Assessment and plan: No orthostasis, -Gradual resumption of antihypertensive medicines - with 1/2 dose of Cardura and ARBs (11) Obesity, Class I, BMI 30.0-34.9 (see actual BMI): Status: Chronic Assessment and plan: On present weekly Hzhxoiyx-lnsr-txvxfzn 1 injections at home (12) Discharge planning issues: Status: Acute Assessment and plan: Discharge home with no services Echocardiogram inpatient VS outpatient Discussed with Dr. Zheng Subjective Subjective Patient reports: no new complaints, tolerating a regular diet and afebrile; denies shortness of breath Interval history since last seen: Patient has been safely reevaluated denies any chest pain shortness of breath lightheadedness. Voiding without difficulty. No increased edema. Exam Narrative Exam Narrative: Follow-up female stated age no acute distress head is atraumatic eyes nonicteric noninjected oral mucosa is moist neck is supple full range of motion no JVD cardiovascular regular rate and rhythm respirations even and unlabored breath sounds are clear bilaterally no rales or wheezing. Abdomen round soft nontender moves all extremities equally no peripheral edema neurologic he is awake alert oriented no focal deficits psychiatric appropriate mood and affect Objective Last Vital Signs Temp 36.7 C 06/14/25 11:39 Pulse 63 06/14/25 11:39 Resp 16 06/14/25 11:39 BP 115/72 06/14/25 11:39 Pulse Ox 97 06/14/25 11:39 Laboratory Results - last 24 hr 06/14/25 05:40 WBC 6.75 RBC 4.38 Hgb 14.2 Hct 42.1 MCV 96 H MCH 32.4 MCHC 33.7 RDW 12.5 Plt Count 180 MPV 9.0 Immature Gran % 0.3 Neutrophils % 52.8 Lymphocytes % 28.4 Monocytes % 12.6 Eosinophils % 5.2 Basophils % 0.7 Nucleated RBC % 0.0 Absolute Neutrophils 3.56 Absolute Lymphocytes 1.92 Absolute Monocytes 0.85 H Absolute Eosinophils 0.35 Absolute Basophils 0.05 Sodium 142 Potassium 4.8 Chloride 112 H Carbon Dioxide 19.6 L Anion Gap 10.4 BUN 64 H Creatinine 3.22 H Est GFR (CKD-EPI 2020) 19.71 Glucose 75 Calcium 9.5 Magnesium 2.2 Time Spent with Patient Time Spent with Patient: >50 minutes Time was spent: preparing to see the patient(eg.review tests), obtaining and/or reviewing separately otained hiistory, ordering medications,tests, procedures, indepentently interpreting results and counseling the patient
[2025-06-14] MEDS: Furosemide 20 MG TAB PO (13:37)
[2025-06-14] MEDS: Doxazosin 1 MG TAB PO (20:31)
[2025-06-14] MEDS: Rosuvastatin 20 MG TAB PO (20:31)
[2025-06-14] MEDS: Carvedilol 12.5 MG TAB PO (20:33)
[2025-06-15 01:54] VITALS: BP 107/65; PULSE 62; RESP 16; TEMP 36.9; O2SAT 95
[2025-06-15 09:04] VITALS: BP 109/74; BP 112/75; BP 117/72; PULSE 60; PULSE 68; PULSE 70
[2025-06-15] MEDS: Cholecalciferol (Vitamin D3) 1,000 UNIT TAB 2000 UNITS PO (09:27)
[2025-06-15] MEDS: Carvedilol 25 MG TAB PO (09:27)
[2025-06-15] MEDS: Empaglifozin 25 MG TAB PO (09:27)
[2025-06-15] MEDS: Losartan 50 MG TAB 100 MG PO (09:27)
[2025-06-15] MEDS: Aspirin E.C. 81 MG TABEC PO (09:28)
[2025-06-15] MEDS: Furosemide 20 MG TAB PO (09:28)
[2025-06-15] MEDS: Enoxaparin 30 MG/0.3 ML SYR SC (09:28)
[2025-06-15 11:06] VITALS: BP 108/69; PULSE 60; RESP 19; TEMP 36.5; O2SAT 94
--- NOTE | 2025-06-15 13:26 | W.PM.DS.N ---
Date of service: 06/15/25 Time of Service: 13:26 DS: Diagnosis Discharge Diagnosis (1) Acute kidney injury superimposed on stage 4 chronic kidney disease: Status: Acute (2) Hyperkalemia: Status: Resolved (3) Dehydration: Status: Resolved (4) Pre-syncope: Status: Resolved (5) Heart failure with mildly reduced ejection fraction (HFmrEF, 41-49%): Status: Acute (6) Hyperlipidemia: Status: Chronic (7) Coronary artery disease: Status: Chronic (8) Type 2 diabetes mellitus: Status: Chronic (9) On deep vein thrombosis (DVT) prophylaxis: Status: Acute (10) Hypertension: Status: Chronic (11) Obesity, Class I, BMI 30.0-34.9 (see actual BMI): Status: Chronic (12) Discharge planning issues: Status: Acute Discharge Plan Disposition Patient Disposition: Home Condition: Improving Discharge Details Reason For Visit: NOLAN on CKD, Hyperkalemia Admit Date/Time: 06/12/25 15:56 Admit Provider: Vinicius Zheng Attending Provider: Vinicius Zheng Primary Care Provider: Preston Moffett Hospital Course Hospital Course: This 59-year-old male patient with past medical history of CKD stage IV, hypertension, diabetes type 2, heart failure with moderately reduced ejection fraction last LVEF 44% in 2020, myocardial infarction x 2, cholelithiasis with cholecystectomy scheduled for 06/25/2025 presented in the ED today for evaluation of dizziness and hypotension. The patient reported blood pressure in the 90s systolic yesterday than usual being 130 over 80s, but he nevertheless continue his antihypertensive regimen that had been intensified with accrued dosing of his diuretic drugs. Also reported intermittent dizziness for months worsening and feeling pre-syncopal without syncopal episode. The workup in the ED was significant h for yperkalemia, NOLAN on CKD. EKG showed sinusal rhythm with probable ectopic atrial beat with old left bundle branch block similar to previous; no signs of myocyte instability or coronary occlusion. The patient has been followed by nephrology at [facility] and is preparing for kidney transplant. In the ED patient was treated with IV fluids and Lokelma and was admitted to the medical surgical floor for evaluation and management of most likely pre-renal NOLAN on CKD, hyperkalemia. Anti-hypertensive medicines and duiretics were held and slow IV hydration continued with resolution of hypotension/orthostasis and creatinine trending down toward baseline. Carvedilol bedtime dose decreased due to minimal episode of second-degree block type I w/o reoccurrence reported. Lasix, doxepin, chlortalidone resumed at lower dosing, home dose olmesartan to be continued. As we discussed, Aldactone was stopped by your health safety engineer prior to your admission and will not be restarted here. Your outpatient providers will continue to further adjust your GDMT and antihypertensive regimen. Continue to monitor your blood pressure at home as per [employer] and report to your PCP if you systolic blood pressure is below 100. The patient is hemodynamically sable and will be discharged home with follow-up with PCP within 7 days of discharge. Call your rock crusher operator and your health safety engineer to have a follow-ups seen sooner; referrals were placed. Echocardiogram showed LVEF 50 to 55%, no regional wall motion, septal wall motion abnormality due to known LBBB, normal RVsize and function - overall no significant change from Echocardiogram from 10/06/2022; IVC collapsing >50% with inspiration. Discussed with Dr. Zheng Recommendations for Follow Up Recommended tests to be ordered by follow up provider: BMP, GDMT for HF drug adjustment Home Meds and New Rx's Prescriptions: New carvedilol 25 mg Tablet 25 mg PO DAILY Qty: 30 0RF carvedilol 12.5 mg Tablet 12.5 mg PO HS Qty: 30 0RF chlorthalidone 25 mg Tablet 12.5 mg PO Q48H Qty: 10 0RF famotidine 20 mg Tablet 10 mg PO DAILY Qty: 14 0RF furosemide 20 mg Tablet 20 mg PO DAILY Qty: 30 0RF rosuvastatin 20 mg Tablet 20 mg PO QPM Qty: 30 0RF Continued aspirin 81 MG tablet,delayed release (DR/EC) 81 mg PO DAILY (DME) FreeStyle Arnold 2 Napoleon Misc See Rx Instructions .ROUTE .MEDSUPPLY Qty: 1 0RF Rx Instructions: As directed cholecalciferol (vitamin D3) 50 mcg (2,000 unit) capsule 50 mcg PO DAILY Rx Instructions: note dated 02/02/22 [facility] cc (DME) FreeStyle Arnold 2 Sensor Kit See Rx Instructions .ROUTE .MEDSUPPLY Qty: 6 3RF Rx Instructions: As directed (DME) blood-glucose meter Misc See Rx Instructions .Route Qty: 1 0RF Rx Instructions: Please fill with insurance preferred Brand. Check blood sugar BID. DX: E11.9 T2DM. (DME) Blood Glucose Test Strip See Rx Instructions .Route Qty: 100 3RF Rx Instructions: Please fill with insurance preferred brand. Check blood sugar BID. DX: E11.9 T2DM (DME) lancets 32 gauge misc See Rx Instructions .Route Qty: 100 3RF Rx Instructions: Please fill with preferred insurance brand. Check blood sugar BID. DX:E11.9 T2DM. Please provide lancing device. Mounjaro 5 mg/0.5 mL pen injector 5 mg subcut QWEEK Patient Comments: from 02/26/25 visit Jardiance 25 mg tablet 25 mg PO DAILY Patient Comments: TAKE ONE TABLET BY MOUTH daily rosuvastatin 20 mg tablet 20 mg PO HS Changed olmesartan [Benicar] 40 mg tablet 20 mg PO DAILY Qty: 90 3RF Held famotidine 40 mg tablet 40 mg PO DAILY Qty: 90 0RF Hold Instructions: Discuss higher dosage with nephrology - new dosage based on renal function carvedilol [Coreg] 25 mg tablet 25 mg PO BID Hold Instructions: Resume on 06/27/25. Discuss dosage increment with cardiology - Patient Comments: 10/06/22 [facility] Rx Instructions: must administer with a meal/food furosemide 20 mg tablet 40 mg PO DAILY PRN (Reason: edema) Qty: 180 3RF Hold Instructions: Resume on 06/27/25. Discuss higher dosing with nephrology Rx Instructions: 1-2 tabs daily as needed for edema or weight gain doxazosin 1 mg tablet 2 mg PO DAILY Hold Instructions: Resume on 06/27/25. Discuss dosage with cardiology Patient Comments: increased to 2mg per pt.HE chlorthalidone 25 mg tablet 12.5 mg PO DIRECTED Hold Instructions: Resume on 06/27/25. Discuss increment in dosage with cardiology Patient Comments: take ONE-HALF tablet BY MOUTH THREE times PER WEEK FOR TWO WEEKS THEN increase TO one half tablet daily Discharge Instructions Stand Alone Forms: Portal Information, Nursing Discharge Form Referrals: CARDIOLOGY,[facility] [OTHER, Cardiology] Referral Note: Already a patient - GDMT for HFmrEF adjusted in the setting of pre-syncope , NOLAN on CKD, hyperkalemia - needs adjustment - patient had tried to reached rock crusher operator prior to admission but no success Preston Moffett APRN [Primary Care Provider, Family Practice] Referral Note: Follow-up with PCP within 7 days of discharge Your pcp will call to schedule your appointment, if you haven't heard from them please reach out. DIONNE FENTON [ NON-[facility] STAFF PHYSICIAN, Medicine] Referral Note: d/c s/p pre-renal NOLAN on CKD-resolved on renal transplant list , pre-syncope in the setting of HFmrEF - diuretics lowered , GDMT ongoing at lower dosing - Activity:: Activity as Tolerated Equipment/Supplies:: No Equipment Needed Diet:: heart healthy diabetic Discharge Orders Discharge Orders: Discharge Order (Routine); Ordered 06/15/25 Ordered By: Deloris Judd DS: Summary Time Spent with Patient providing and/or coordinating discharge services: Greater than 30 minutes Status at Discharge Functional status at discharge: independent ambulation Overall status at discharge: patient is progressing back to baseline Mental Status: mental status grossly normal Speech and Movement: speech and movement normal Mood: congruent mood Affect: normal affect Quality:SDOH Health Related Social Needs: Health related social needs education Exam Narrative Exam Narrative: In no acute distress, non-icteric sclera,no JVD, moist mucous membranes, alert oriented x 4, no focal neurological deficit, unlabored breathing clear lungs bilaterally to auscultation, S1-S2 regular heart cardiac no murmur but s, abdomen is nondistended soft nontender, CVA tenderness, no edema to lower extremities, moves all 4 extremities,. Psych Mental Status: mental status grossly normal Speech and Movement: speech and movement normal Mood: congruent mood Affect: normal affect DS: Data Vitals/I&O Vitals and I&O: Vital Signs Temperature 36.5 C 06/15/25 11:06 Temperature Source Temporal Artery Scan 06/15/25 11:06 Pulse 60 06/15/25 11:06 Pulse Rhythm Regular 06/12/25 16:59 Pulse 57 L 06/12/25 16:21 Respiratory Rate 19 06/15/25 11:06 Respiratory Effort Normal 06/12/25 16:59 Respiratory Depth Normal 06/12/25 16:32 Respiratory Pattern Normal 06/12/25 16:32 Blood Pressure 108/69 06/15/25 11:06 Blood Pressure Mean 82 06/15/25 11:06 Pulse Oximetry 94 06/15/25 11:06 Oxygen Delivery Method Room Air 06/15/25 11:06 Oxygen Flow Rate 0 06/15/25 11:06 Pain Level 0 06/13/25 15:24 Comment Orthostatic negative 06/12/25 22:34 Intake & Output 06/14/25 06/15/25 06/15/25 23:59 11:59 23:59 Intake Total 740 / 740 480 / 480 Output Total 2325 / 4025 650 / 650 Balance -1585 / -3285 -650 / -170 480 / -170 Weight 102.9 kg Intake: Oral 740 / 740 480 / 480 Output: Urine 2325 / 4025 650 / 650 Other: Urine Color Yellow Yellow Urine Appearance Clear Clear Urine Odor Normal Normal Comment voiding independent Stool Size Moderate Stool Characteristics Soft Formed Data Completed and Pending Pending Labs at Discharge: 06/12/25 06/12/25 06/12/25 13:53 14:46 16:45 WBC 6.73 RBC 4.39 Hgb 14.1 Hct 42.0 MCV 96 H MCH 32.1 MCHC 33.6 RDW 12.7 Plt Count 190 MPV 9.2 Immature Gran % 0.1 Neutrophils % 63.6 Lymphocytes % 20.7 Monocytes % 10.4 Eosinophils % 4.5 Basophils % 0.7 Nucleated RBC % 0.0 Absolute Neutrophils 4.28 Absolute Lymphocytes 1.39 Absolute Monocytes 0.70 Absolute Eosinophils 0.30 Absolute Basophils 0.05 Sodium 140 Potassium 5.8 H Chloride 110 H Carbon Dioxide 20.7 Anion Gap 9.3 BUN 91 H* Creatinine 4.18 H* Est GFR (CKD-EPI 2020) 14.58 Glucose 106 Calcium 8.9 Magnesium 2.4 Total Bilirubin 0.40 AST 17 ALT 16 Alkaline Phosphatase 64 Troponin I 7 7 NT-Pro-B Natriuret Pep 172 Total Protein 7.2 Albumin 4.4 Urine Color Yellow Urine Clarity Clear Urine pH 5.5 Ur Specific [place] 1.010 Urine Protein Negative Urine Ketones Negative Urine Blood Trace-intact H Urine Nitrite Negative Urine Bilirubin Negative Urine Urobilinogen 0.2 Ur Leukocyte Esterase Negative Urine RBC 5-10 H Urine WBC Negative Ur Epithelial Cells Few Urine Crystals Negative Urine Bacteria Rare Urine Casts Negative Urine Mucus Negative Ur Culture Indicated? No Urine Glucose 250 H 06/12/25 06/13/25 06/14/25 18:00 06:00 05:40 WBC 6.35 6.75 RBC 4.21 L 4.38 Hgb 13.3 L 14.2 Hct 39.9 L 42.1 MCV 95 96 H MCH 31.6 32.4 MCHC 33.3 33.7 RDW 12.6 12.5 Plt Count 166 180 MPV 9.1 9.0 Immature Gran % 0.3 0.3 Neutrophils % 53.9 52.8 Lymphocytes % 27.6 28.4 Monocytes % 11.7 12.6 Eosinophils % 5.7 5.2 Basophils % 0.8 0.7 Nucleated RBC % 0.0 0.0 Absolute Neutrophils 3.43 3.56 Absolute Lymphocytes 1.75 1.92 Absolute Monocytes 0.74 0.85 H Absolute Eosinophils 0.36 0.35 Absolute Basophils 0.05 0.05 Sodium 143 142 Potassium 5.2 H 4.7 4.8 Chloride 113 H 112 H Carbon Dioxide 18.9 L 19.6 L Anion Gap 11.1 H 10.4 BUN 76 H 64 H Creatinine 3.79 H* 3.22 H Est GFR (CKD-EPI 2020) 16.33 19.71 Glucose 76 75 Calcium 8.6 9.5 Magnesium 2.2 2.2 Total Bilirubin AST ALT Alkaline Phosphatase Troponin I NT-Pro-B Natriuret Pep Total Protein Albumin Urine Color Urine Clarity Urine pH Ur Specific [place] Urine Protein Urine Ketones Urine Blood Urine Nitrite Urine Bilirubin Urine Urobilinogen Ur Leukocyte Esterase Urine RBC Urine WBC Ur Epithelial Cells Urine Crystals Urine Bacteria Urine Casts Urine Mucus Ur Culture Indicated? Urine Glucose PFSH All Active Problems (Updated 06/15/25 @ 12:47 by Deloris Judd APRN) Discharge planning issues (Acute) On deep vein thrombosis (DVT) prophylaxis (Acute) Coronary artery disease (Chronic) Diabetes (Chronic) Heart failure with mildly reduced ejection fraction (HFmrEF, 41-49%) (Acute) Acute kidney injury superimposed on stage 4 chronic kidney disease (Acute) Hypovolemia (Acute) Acute hypotension (Acute) NOLAN (acute kidney injury) (Acute) Former smoker (Acute) Screening for prostate cancer (Acute) Encounter for pre-transplant evaluation for kidney transplant (Acute ~03/05/25) [facility] [place] 03/05/25.HE Hyperparathyroidism, unspecified (Acute) 02/26/25 f/u [facility] Nephrology Chronic kidney disease, stage 4 (severe) (Acute ~02/2025) 02/26/25 F/U with Nephrology, was stage 3 now advanced to stage 4 Abdominal wall bulge (Acute) Rectus diastasis (Acute) FUNG (dyspnea on exertion) (Acute ~05/2022) Colonoscopy refused (Acute) Hypovitaminosis D (Acute ~01/2022) 12/22/22 Nephrology 02/26/25 F/u with Nephrology CKD (chronic kidney disease) stage 3, GFR 30-59 ml/min (Acute) 12/22/22 Nephrology 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 (Chronic ~05/2021) Nephrotic range proteinuria (Acute) CHF (congestive heart failure) (Chronic ~01/2021) LVEF 44% 03/1203/12/13 stress echo [facility]: EF 60% no ischemia History of coronary artery bypass graft x 2 (Chronic 11/01/15) Hypertension (Chronic) Hyperlipidemia (Chronic) Type 2 diabetes mellitus (Chronic) Microalbuminuria due to type 2 diabetes mellitus (Chronic 01/17/17) Obesity, Class I, BMI 30.0-34.9 (see actual BMI) (Chronic 12/22/14) Spinal stenosis at L4-L5 level (Chronic 12/25/14) Medical History Acute kidney injury 02/13/24 Nephrology, consult d/t proteinuria Pneumonia (08/02/13) Fracture, ribs (08/02/13) Surgical History Coronary Artery Bypass G[place] (CABG) (11/01/15) Haim Valentine MD [facility] Angioplasty Family History Mother Alcohol abuse Essential hypertension Father Essential hypertension Hyperlipidemia Vocal cord cancer XRT Sister Essential hypertension Social History Smoking/Tobacco Use Status: Former Tobacco Use Quit Date: 07/23/11 Smoking risk assessment performed?: Yes Alcohol Intake: current Alcohol Intake frequency: a few times a week Alcohol type: wine Drug use: Never Substance use type: does not use Adopted: No Household members: spouse and other Details: son in college Housing: house Number of Children: 3 number of grandchildren: 1 Communication Needs: [employer]enses current occupation: works for [employer] What is your relationship status?: Panel score (0-1 are the most socially isolated patients): 1 What type of physical activity do you participate in: none Seatbelt use: always Drive intox or ride w/intox local combination truck driver: No Working smoke detector in home: Yes Carbon monox detector in home: Yes Do you feel safe at home: Yes Do you feel safe in your relationship?: Yes Time Spent with Patient Time Spent with Patient: >85 minutes Time was spent: preparing to see the patient(eg.review tests), obtaining and/or reviewing separately otained hiistory, ordering medications,tests, procedures, referring, communicating with other health resident care associate, indepentently interpreting results, counseling the patient, care coordination and other
--- NOTE | 2025-06-15 13:50 | PDOC.CMDIS ---
Date of service: 06/15/25 Time of Service: 13:50 LACE Index Scoring Tool Questions: Length of Stay (in days): 3 Was the patient admitted via the E.D.?: Yes Comorbidities: Diabetes w/o Complication, Congestive Heart Failure and Liver or Renal Disease E.D. Visits: 1 Answers: Total Score: 12 Risk of Readmission: High Risk Care Management Discharge Plan Reason for Hospitalization: Acute kidney injury superimposed on stage 4 chronic kidney disease Discharge Plan: Rico is discharged today with no new home care services. He will f/u with his PCP and with his specialists and continue per his plan of care. Rico will transport home with his . Patient/Family Education Needs: Review of discharge instructions, activity, limitations, and discuss Ask me 3. SDOH Health Related Social Needs: Health related social needs education
[2025-06-15] MEDS: Famotidine 20 MG TAB 10 MG PO (14:12)
== END 2025-06-15 14:19 | disposition home or self-care (01) | DRG 683 ==
LOC: ER 15:10 → MS 18:32
PROVIDERS: Admitting Provider Family Medicine; Emergency Provider Student in an Organized Health Care Education/Training Program; Responsible Provider Nurse Practitioner Acute Care; Visit Provider Family Medicine
DX: N17.9 Acute kidney failure, unspecified (principal); I13.0 Hypertensive heart and chronic kidney disease with heart failure and stage 1 through stage 4 chronic kidney disease, or unspecified chronic kidney disease; I50.20 Unspecified systolic (congestive) heart failure; N18.4 Chronic kidney disease, stage 4 (severe); E87.5 Hyperkalemia; E86.0 Dehydration; I25.10 Atherosclerotic heart disease of native coronary artery without angina pectoris; E78.5 Hyperlipidemia, unspecified; R80.9 Proteinuria, unspecified; E11.22 Type 2 diabetes mellitus with diabetic chronic kidney disease; R55 Syncope and collapse; Z68.32 Body mass index [BMI] 32.0-32.9, adult; I25.2 Old myocardial infarction; Z95.5 Presence of coronary angioplasty implant and graft; Z95.1 Presence of aortocoronary bypass graft; K80.20 Calculus of gallbladder without cholecystitis without obstruction; I95.9 Hypotension, unspecified; Z87.891 Personal history of nicotine dependence; N25.81 Secondary hyperparathyroidism of renal origin; E66.811 Obesity, class 1; M48.061 Spinal stenosis, lumbar region without neurogenic claudication
CPT/HCPCS: 00123; 36415; 80048; 80053; 93005; 99285; 81003; 81015; 83735; 83880; 84132; 84484; 85025; 93010; 93306; 99223; 99233; 99239; G0378; J1650; J1815

== ENCOUNTER 2025-06-25 07:38 | Day surgery (SDC) | payer OTHER, SELFPAY ==
--- NOTE | 2025-06-25 06:17 | W.ANESPRE ---
General Info Date of Service Date Performed: 06/25/25 Height: 5 ft 10 in Weight: 102.512 kg Body Mass Index (BMI): 32.4 Surgical Procedure: Operation Date: 06/25/25 09:05 Proposed Procedure Side Surgeon sary Connell MD Meds Allergies and Home Medications Allergies Allergy/AdvReac Type Severity Reaction Status Date / Time atorvastatin Allergy Unknown muscle pain Verified 06/25/25 08:07 lisinopril AdvReac Mild cough Verified 06/25/25 08:07 Home Medication ?Medication ?Instructions ?Recorded aspirin 81 mg tablet,delayed 81 mg PO DAILY 11/25/12 release flash glucose scanning reader #1 ea 07/05/21 (FreeStyle Arnold 2 [place]) cholecalciferol (vitamin D3) 50 50 mcg PO DAILY 02/07/22 mcg (2,000 unit) capsule carvedilol 25 mg tablet (Coreg) 25 mg PO BID 10/10/22 Held on 06/15/25. Instructions: Resume on 06/27/25. Discuss dosage increment with cardiology - flash glucose sensor (FreeStyle #6 ea 09/09/24 Arnold 2 Sensor kit) furosemide 20 mg tablet 40 mg (2 x 20 mg) PO DAILY PRN 10/21/24 Held on 06/15/25. edema #180 tabs Instructions: Resume on 06/27/25. Discuss higher dosing with nephrology blood sugar diagnostic (Blood #100 ea 11/14/24 Glucose Test strips) blood-glucose meter #1 ea 11/14/24 lancets 32 gauge #100 ea 11/14/24 tirzepatide 5 mg/0.5 mL 5 mg subcut QWEEK 03/12/25 subcutaneous pen injector (Teo) doxazosin 1 mg tablet 2 mg PO DAILY 03/26/25 Held on 06/15/25. Instructions: Resume on 06/27/25. Discuss dosage with cardiology famotidine 40 mg tablet 40 mg PO DAILY #90 tabs 05/07/25 Held on 06/15/25. Instructions: Discuss higher dosage with nephrology - new dosage based on renal function chlorthalidone 25 mg tablet 12.5 mg PO DIRECTED 06/12/25 Held on 06/15/25. Instructions: Resume on 06/27/25. Discuss increment in dosage with cardiology empagliflozin 25 mg tablet 25 mg PO DAILY 06/12/25 (Jardiance) rosuvastatin 20 mg tablet 20 mg PO HS 06/12/25 carvedilol 12.5 mg tablet 12.5 mg PO HS #30 tabs 06/15/25 carvedilol 25 mg tablet 25 mg PO DAILY #30 tabs 06/15/25 chlorthalidone 25 mg tablet 12.5 mg (1/2 x 25 mg) PO Q48H #10 06/15/25 tabs famotidine 20 mg tablet 10 mg (1/2 x 20 mg) PO DAILY #14 06/15/25 tabs furosemide 20 mg tablet 20 mg PO DAILY #30 tabs 06/15/25 olmesartan 40 mg tablet (Benicar) 20 mg (1/2 x 40 mg) PO DAILY #90 06/15/25 tabs rosuvastatin 20 mg tablet 20 mg PO QPM #30 tabs 06/15/25 Current Visit Medications: Current Medications Generic Name Dose Route Start Last Admin Trade Name Freq PRN Reason Stop Dose Admin Ringer's Solution 1,000 mls @ 10 mls/hr 06/25/25 06:00 IV 06/25/25 23:59 INFUSION GABY Sodium Biphosphate/Sodium Phosphate 133 ml 06/25/25 06:00 Na Phosphate Enema-Adult 133 Ml Btl OK 06/25/25 23:59 DIRECTED PRN Sodium Chloride 0 ml 06/25/25 06:00 Normal Saline Flush 10 Ml Syr IV 06/25/25 23:59 PRN PRN Sodium Chloride 0 ml 06/25/25 06:00 Normal Saline 10 Ml Vial IJ 06/25/25 23:59 DIRECTED PRN Sterile Water 0 ml 06/25/25 06:00 Water,Injection,Sterile 10 Ml Vial IJ 06/25/25 23:59 DIRECTED PRN PFSH Active Problems Active Problems: Problem Status Onset Code Coronary artery disease Chronic I25.10 Diabetes Chronic E11.9 Heart failure with mildly reduced ejection fraction (HFmrEF, 41-49%) Acute I50.20 Acute kidney injury superimposed on stage 4 chronic kidney disease Acute N17.9, N18.4 Hypovolemia Acute E86.1 Acute hypotension Acute I95.9 NOLAN (acute kidney injury) Acute N17.9 Former smoker Acute Z87.891 Screening for prostate cancer Acute Z12.5 Encounter for pre-transplant evaluation for kidney transplant Acute ~03/05/25 Z01.818 Hyperparathyroidism, unspecified Acute E21.3 Chronic kidney disease, stage 4 (severe) Acute ~02/2025 N18.4 Abdominal wall bulge Acute R19.00 Rectus diastasis Acute M62.08 FUNG (dyspnea on exertion) Acute ~05/2022 R06.09 Colonoscopy refused Acute Z53.20 Hypovitaminosis D Acute ~01/2022 E55.9 CKD (chronic kidney disease) stage 3, GFR 30-59 ml/min Acute N18.30 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 Chronic ~05/2021 E11.21 Nephrotic range proteinuria Acute R80.9 CHF (congestive heart failure) Chronic ~01/2021 I50.9 History of coronary artery bypass graft x 2 Chronic 11/01/15 Z95.1 Acute myocardial infarction Resolved 01/21/13 I21.9 Hypertension Chronic I10 Hyperlipidemia Chronic E78.5 Type 2 diabetes mellitus Chronic E11.9 Microalbuminuria due to type 2 diabetes mellitus Chronic 01/17/17 E11.29, R80.9 Obesity, Class I, BMI 30.0-34.9 (see actual BMI) Chronic 12/22/14 E66.9 Spinal stenosis at L4-L5 level Chronic 12/25/14 M48.061 Lumbar radiculopathy Resolved 12/25/14 M54.16 Edema Resolved R60.9 Medical History Medical History Acute kidney injury 02/13/24 Nephrology, consult d/t proteinuria Pneumonia (08/02/13) Fracture, ribs (08/02/13) Surgical History Surgical History Coronary Artery Bypass [place] (CABG) (11/01/15) Haim Valentine [place] [facility] [place] Tobacco Smoking/Tobacco Use Status: Former Tobacco Use Alcohol Alcohol Intake: current Alcohol intake frequency: a few times a week Alcohol type: wine Substance Use Substance use: Never Substance use type: does not use Vital Signs and Lab Results Lab Results Complete Blood Count: WBC, (4.4-10.8) 6.75 10^3/uL 06/14/25, 05:40 RBC, (4.36-5.78) 4.38 10^6/uL 06/14/25, 05:40 Hgb, (13.5-17.5) 14.2 g/dL 06/14/25, 05:40 Hct, (40.0-50.0) 42.1 % 06/14/25, 05:40 Plt Count, (130-400) 180 10^3/uL 06/14/25, 05:40 Complete Metabolic Panel: Sodium, (136-145) 142 mmol/L Today, 08:21 Potassium, (3.5-5.1) 5.2 mmol/L H Today, 08:21 Chloride, (98-107) 114 mmol/L H Today, 08:21 Carbon Dioxide, (20.0-31.0) 19.1 mmol/L L Today, 08:21 BUN, (9-23) 59 mg/dL H Today, 08:21 Creatinine, (0.73-1.18) 3.37 mg/dL H Today, 08:21 Est GFR (CKD-EPI 2020), (mL/min/1.73m2) 18.70 Today, 08:21 Magnesium, (1.6-2.6) 2.2 mg/dL 06/14/25, 05:40 Calcium, (8.3-10.6) 8.9 mg/dL Today, 08:21 Albumin, (3.4-5.0) 4.4 g/dL 06/12/25, 13:53 Glucose, (74-106) 94 mg/dL Today, 08:21 Liver Function Panel: ALT, (10-49) 16 U/L 06/12/25, 13:53 AST, (<34) 17 U/L 06/12/25, 13:53 Cardiac Panel: Troponin I, (<54) 7 ng/L 06/12/25 NT-Pro-B Natriuret Pep, (<300) 172 pg/mL 06/12/25 Imaging and Studies Imaging and Studies Study information below may be from another EMR and interpreted by another provider. Please see original notes in EMR for more complete details. Stress Test Summary: Patient Name: NATALIE MCCABE Unit #: [id number] Loc: DI Ordering Provider: Kathy García M.D. Status: REG CLI Primary Care Provider: Kathy García M.D. Date of Exam: 01/26/20 Sex: M Admission Date: 01/26/20 : 1965 Age: 54 Exam(s) a NM:NM MPI rest & stress grp APPROVED REPORT Exam: Pharmacologic Patient Location: Out-Patient Room/Bed: Stress Nurse: Kendra Mitchell RN BMI: 35.86 Baseline Rhythm: Sinus Rhythm, LBBB Indications: CAD, CAD s/p CABG, CAD s/p NJ, CAD s/p PCI, SOB Medical History Medical History: Angina, CAD s/p CABG, CAD s/p NJ, CAD s/p stent, Diabetes, HTN, Hyperlipidemia, Obesity , Smoking Cardiac Medications: Aspirin, Amlodipine, Doxazosin/ Cardura, Metoprolol, Rosuvastatin/ Crestor Allergies: lisinopril Cardiac Risk Factors: HTN, Hyperlipidemia, DM, FHX of CAD, SOB, CVD Previous Cardiac Procedures: CABG, PCI, Myocardial infarction Pretest Chest Pain Characteristics: No chest pain Exercise History: Sedentary Lung Sounds: Clear to auscultation Heart Sounds: Regular Stress Test Details Test: Pharmacologic stress testing performed using 0.4 mg of regadenoson per 5 mL given IV over 10 seconds. Reason for pharmacologic stress test: LBBB. Nuclear Acquisition: Rest Tc-99m/Stress Tc-99m 1 day Rest Isotope: Tc-99m Sestamibi. Dose: 12.1 Date: 01/26/2020 Injection Time: 0850 Stress Isotope: Tc-99m Sestamibi. Dose: 38 Date: 01/26/2020 Injection Time: 1020 HR Resting HR Supine: 79 bpmMax Heart Rate (APMHR): 165 bpm Target HR (85% APMHR): 140 bpm Max HR Achieved: 95 bpm % of APMHR: 57 Recovery HR: 89 bpm HR response to stress: Blunted HR response to stress BP Resting BP Supine: 178/95 mmHg Max BP: 188/90 mmHg Recovery BP: 172/90 mmHg BP response to stress: Abnormal hypertensive response to stress. ECG Resting ECG: Sinus Rhythm, LBBB Ectopy: pvc's Stress ECG: Sinus Rhythm, LBBB ST Change: Normal Maximum ST Deviation: -9.1 mm Recovery ECG: Sinus Rhythm, LBBB Recovery Arrhythmia: None Clinical Exercise duration: 06:03 min sec Exercise capacity: 1 METs Stress ECG Conclusion 1. This was a pharmacologic myocardial perfusion imaging study 2. Resting EKG shows left bundle branch block. 3. Electrocardiographically the test is nondiagnostic due to resting EKG abnormalities (LBBB) and an adequate heart rate achieved (57% of predicted for age) 4. Sporadic PVCs were noted MPI Conclusion There is no myocardial ischemia or evidence of prior infarction Calculated EF is 45% Radiologist Interpretation Radiologist agrees with Measurement Technician's Interpretation. Radiologist Interpretation by: Ela Peterson MD Interpretation Date/Time: 01/28/2020 08:40:52 Ordered By: Kathy García M.D. CC: DON HINOJOSA,KEANU DE LA TORRE Dictated By: Keanu Samuels M.D. 01/26/20 1043 <Electronically signed by Keanu Samuels M.D. in OV> 01/28/20 0997 Transcribed By: Keanu Samuels MD Echocardiogram Summary: 06/15/25 EF 50-55%, known LBBB, mild TR Anesthesia Assessment and Plan Anesthesia History Personal History: No History of Anesthesia Complications Family History: No Family History of Anesthesia Complications Exercise Tolerance Exercise Tolerance: Metabolic Equivalents>4 Pertinent Negatives Pertinent Negatives: No Symptoms of GERD, No Major Cardiovascular Symptoms or Complaints (hx pf CABG 2016) and No Major Pulmonary Symptoms or Complaints Cardiac & Pulmonary Exam Cardiac Exam: Normal S1/S2 Heart Sounds Pulmonary Exam: Clear Bilateral Breath Sounds Implantable Cardiac Device Does patient have a Pacemaker or an ICD?: No Airway Exam Known Difficult Airway: No Mallampati Class: 2 Mouth Opening: Normal (> 3cm) Thyromental Distance: Greater than 3 cm Neck Range of Motion: Full ROM Neck Circumference: Normal Teeth Condition: Normal Dentition ASA Classification ASA Score: ASA 3 Emergency Case?: No NPO Status NPO Status: NPO Clears >2 hours, Solids >8 hours Anesthesia Plan Resuscitation Status: Full Code Anesthesia Technique: General Anesthesia Airway Planned: Natural Airway Monitors Used: Standard Monitors
[2025-06-25 07:50] VITALS: BP 114/68; PULSE 69; RESP 16; TEMP 36; O2SAT 97
[2025-06-25] MEDS: Lactated Ringers 1,000 ML 10 ML IV (08:25)
[2025-06-25 08:54] LABS: Anion Gap 8.9 mmol/L (3-11); BUN 59 mg/dL (9-23); CO2 19.1 mmol/L (20.0-31.0); Calcium 8.9 mg/dL (8.3-10.6); Chloride 114 mmol/L (98-107); Glucose 94 mg/dL (74-106); Potassium 5.2 mmol/L (3.5-5.1); Sodium 142 mmol/L (136-145)
[2025-06-25 09:00] VITALS: BMI 32.4
--- NOTE | 2025-06-25 09:03 | PDOC.DSDIS_ITS ---
Date of service: 06/25/25 Discharge Plan Disposition Patient Disposition: Home Condition: Stable Discharge Details Attending Provider: Dolores Connell Primary Care Provider: Preston Moffett Home Meds and New Rx's Prescriptions: Continued famotidine 40 mg tablet 40 mg PO DAILY Qty: 90 0RF (DME) FreeStyle Arnold 2 [place] Misc See Rx Instructions .ROUTE .MEDSUPPLY Qty: 1 0RF Rx Instructions: As directed cholecalciferol (vitamin D3) 50 mcg (2,000 unit) capsule 50 mcg PO DAILY Rx Instructions: note dated 02/02/22 [facility] [place] cc carvedilol [Coreg] 25 mg tablet 25 mg PO BID Patient Comments: 10/06/22 [facility] Rx Instructions: must administer with a meal/food (DME) FreeStyle Arnold 2 Sensor Kit See Rx Instructions .ROUTE .MEDSUPPLY Qty: 6 3RF Rx Instructions: As directed furosemide 20 mg tablet 40 mg PO DAILY PRN (Reason: edema) Qty: 180 3RF Rx Instructions: 1-2 tabs daily as needed for edema or weight gain (DME) blood-glucose meter Misc See Rx Instructions .Route Qty: 1 0RF Rx Instructions: Please fill with insurance preferred Brand. Check blood sugar BID. DX: E11.9 T2DM. (DME) Blood Glucose Test Strip See Rx Instructions .Route Qty: 100 3RF Rx Instructions: Please fill with insurance preferred brand. Check blood sugar BID. DX: E11.9 T2DM (DME) lancets 32 gauge misc See Rx Instructions .Route Qty: 100 3RF Rx Instructions: Please fill with preferred insurance brand. Check blood sugar BID. DX:E11.9 T2DM. Please provide lancing device. Mounjaro 5 mg/0.5 mL pen injector 5 mg subcut QWEEK Patient Comments: from 02/26/25 visit doxazosin 1 mg tablet 2 mg PO DAILY Patient Comments: increased to 2mg per pt.HE chlorthalidone 25 mg tablet 12.5 mg PO DIRECTED Patient Comments: take ONE-HALF tablet BY MOUTH THREE times PER WEEK FOR TWO WEEKS THEN increase TO one half tablet daily Jardiance 25 mg tablet 25 mg PO DAILY Patient Comments: TAKE ONE TABLET BY MOUTH daily rosuvastatin 20 mg tablet 20 mg PO HS carvedilol 25 mg Tablet 25 mg PO DAILY Qty: 30 0RF carvedilol 12.5 mg Tablet 12.5 mg PO HS Qty: 30 0RF chlorthalidone 25 mg Tablet 12.5 mg PO Q48H Qty: 10 0RF famotidine 20 mg Tablet 10 mg PO DAILY Qty: 14 0RF furosemide 20 mg Tablet 20 mg PO DAILY Qty: 30 0RF rosuvastatin 20 mg Tablet 20 mg PO QPM Qty: 30 0RF olmesartan [Benicar] 40 mg tablet 20 mg PO DAILY Qty: 90 3RF Discontinued aspirin 81 MG tablet,delayed release (DR/EC) 81 mg PO DAILY Discharge Instructions Additional Instructions: Three polyps seen and removed today. Timing of next colonoscopy will depend on pathology (biopsy result) of these polyps. Suspect you will be due for another colonoscopy in 3-5 years. Stand Alone Forms: Anesthesia Discharge Inst., Colonoscopy Post Instructions, Jeanne Hoang (DSU), Portal Information Activity:: Activity as Tolerated Diet:: renal diet Discharge Orders Discharge Orders: Discharge Order (Routine); Ordered 06/25/25 Ordered By: Dolores Connell DS: Diagnosis Discharge Diagnosis (1) Encounter for screening colonoscopy: Status: Acute (2) Sigmoid polyp: Status: Acute (3) Rectal polyp: Status: Acute
--- NOTE | 2025-06-25 09:21 | BOWEL_PTH ---
PATIENT: Rico Kerr LOC: [facility] U#:[id number] AGE/SX: 59/M ROOM: RE06/25/[address]: Dolores Connell MD : 1965 BED: DIS: 06/25/2025 SPEC #: [id number] RECD: 06/25/25 12:58 STATUS: JANICE REJose Armando #: [id number] RADHA: 06/25/25 09:[address]: Dolores Connell DEPT: Surgical Specimen RECD BY: Alejandrina Garcia ENTERED: 06/25/25 13:00 SP TYPE: Bowel OTHR DR: Preston Moffett Tissues: 1 - BIOPSY BOWEL 2 - BIOPSY BOWEL Procedures: GROSS AND MICRO LEVEL 4 Comments: [id number]
--- NOTE | 2025-06-25 09:32 | W.COLOREPORT ---
Date of service: 06/25/25 Time of Service: 09:33 Colonoscopy Report Date of procedure: 06/25/25 Pre-op diagnosis general: Screening for colorectal cancer Post-op diagnosis procedure note: same Procedure: Colonoscopy with hot snare and cold forceps polypectomy Surgeon: Dolores Connell Anesthesia Type: General:No Airway Estimated blood loss (mL): 2 Pathology: other (1. multiple sigmoid polyps. 2. Rectum polyp) Complications: None Indications: screening for colorectal cancer Prep: Miralax/Dulcolax (Good. ) Procedure Description: Informed consent was obtained and the patient was taken to the procedure area. The patient was placed in left lateral decubitus position on the procedure table. Timeout was performed. Anesthesia was induced. A lubricated colonoscope was inserted through the anus and passed to the cecum. The cecum was identified by the ileocecal valve and the appendiceal orifice. The scope was then slowly withdrawn and the colonic and rectal mucosa examined. The scope was retroflexed in the anorectal junction examined. TI intubated and examined. It appears normal. Sigmoid colon with two adjacent polyps seen and removed and sent together as one specimen. Hot snare used to excise a 7mm pedunculated polyp and a 6mm sessile polyp. Rectum with 2-3mm sessile polyp excised with cold forceps. Internal hemorrhoids with grade 3 prolapse and tags. No diverticulosis was seen. Assessment and plan: Screening for colorectal cancer pre-transplant examination Three polyps seen and removed. Next colonoscopy timing will depend on pathology of excised polyps.
[2025-06-25 09:36] VITALS: BP 88/58; PULSE 60; RESP 16; TEMP 36.3; O2SAT 96
[2025-06-25 09:45] VITALS: BP 102/66
[2025-06-25 10:05] VITALS: BP 105/73; PULSE 55; RESP 16; TEMP 36.3; O2SAT 97
--- NOTE | 2025-06-25 10:17 | W.ANESPOSTOP ---
Postoperative Evaluation Date, Time and Location Date Performed: 06/25/25 Time Performed: 10:17 Patient Location: Day Surgery Unit Vital Signs Most Recent Imported Vital Signs: Most Recent Vital Signs Temp Pulse Resp BP Pulse Ox 36.3 C L 55 L 16 105/73 97 06/25/25 10:05 06/25/25 10:05 06/25/25 10:05 06/25/25 10:05 06/25/25 10:05 Pain Score Most Recent Pain Score: Most Recent Pain Score Pain Level 0 06/25/25 10:05 Assessment Mental Status: Awake (Alert & Oriented to Patient Baseline) Airway and Respiratory Function: Patent airway with normal (patient baseline) respiratory exam Cardiovascular Function: Hemodynamically Stable Hydration Status: Adequately Hydrated Nausea & Vomiting: No Nausea or Vomiting Pain: Pt. Denies Any Pain Peripheral Nerve Block: Patient did not receive a nerve block
== END 2025-06-25 10:17 | disposition home or self-care (01) ==
LOC: SUR 07:38
PROVIDERS: Nurse Anesthetist, Certified Registered; Visit Provider Surgery
PROC: 0DJD8ZZ Inspection of Lower Intestinal Tract, Via Natural or Artificial Opening Endoscopic (ICD-10-PCS; CPT 45378; principal; 2025-06-25 09:00)
DX: Z12.11 Encounter for screening for malignant neoplasm of colon (principal); K62.1 Rectal polyp; D12.5 Benign neoplasm of sigmoid colon; I10 Essential (primary) hypertension
CPT/HCPCS: 45385; 45380; 80048; 88305; J2003; J2704